=== PATIENT | male | born 1960 | race Caucasian/White ===

== ENCOUNTER 2023-09-04 09:26 | Day surgery (SDC) | payer BC, OTHER ==
[2023-09-04] VITALS (13 sets, daily range): BP systolic 104–136; BP diastolic 55–78; PULSE 72–86; RESP 16–18; TEMP 98.2; O2SAT 92–98
[~2023-09-04] VITALS: Ht 180.3 cm; Wt 65.0 kg
[2023-09-04] MEDS ORDERED: normal saline 1000ml 1,000 ML IV PRN (10:00)
[2023-09-04] MEDS ORDERED: ENOX40SY7 SUBCUT (12:57)
[2023-09-04] MEDS ORDERED: ERGO500056 PO (12:57)
[2023-09-04] MEDS ORDERED: ASPI-611 PO (12:57)
[2023-09-04] MEDS ORDERED: EMPA10TA PO (12:57)
[2023-09-04] MEDS ORDERED: CARV6.253 PO (12:57)
[2023-09-04] MEDS ORDERED: ATOR20TA66 PO (12:57)
[2023-09-04] MEDS ORDERED: DOCU100C40 PO (12:57)
[2023-09-04] MEDS ORDERED: NALO12.52 PO (13:19)
[2023-09-04] MEDS ORDERED: FOLI1TAB27 PO (13:19)
[2023-09-04] MEDS ORDERED: TROL141. TOP (13:19)
[2023-09-04] MEDS ORDERED: QUET25TA36 PO (13:19)
[2023-09-04] MEDS ORDERED: LORA-269 PO (13:19)
[2023-09-04] MEDS ORDERED: HYDR1LIQ3 IV (13:19)
[2023-09-04] MEDS ORDERED: THIA50TA10 PO (13:19)
[2023-09-04] MEDS ORDERED: OLAN5TAB3 IV (13:19)
[2023-09-04] MEDS ORDERED: ONDA-103 IV (13:19)
[2023-09-04] MEDS ORDERED: FLO0.4C PO (13:19)
[2023-09-04] MEDS ORDERED: OMEP20CA16 PO (13:19)
[2023-09-04] MEDS ORDERED: POLY17PO59 PO (13:19)
[2023-09-04] MEDS ORDERED: SPIR25TA5 PO (13:19)
[2023-09-04] MEDS ORDERED: HYDR-3973 PO ×2 (13:19)
[2023-09-04] MEDS ORDERED: PENT400T17 PO (13:19)
[2023-09-04] MEDS ORDERED: MAG355OR18 PO (13:19)
[2023-09-04] MEDS ORDERED: LIDO700A47 TOP (13:19)
[2023-09-04] MEDS ORDERED: MULT-661 PO (13:19)
[2023-09-04] MEDS ORDERED: [UNRECOGNIZED DRUG - CODE] IVF (13:19)
[2023-09-04] MEDS ORDERED: SACU1TAB PO (13:19)
[2023-09-04] MEDS ORDERED: METH114C4 TOP (13:19)
[2023-09-04 14:21] LABS: BASOPHILS # (AUTO) 0.1 X10'3 (0-0.2); BASOPHILS % (AUTO) 0.6 % (0-1); EOSINOPHILS # (AUTO) 0.2 X10'3 (0-0.9); EOSINOPHILS % (AUTO) 1.7 % (0-6); HEMATOCRIT 27.1 % (42.0-52.0); HEMOGLOBIN 9.1 g/dl (14.0-17.9); LYMPHOCYTES % (AUTO) 7.1 % (21-51); MEAN CORPUSCULAR HEMOGLOBIN 28.7 PG (27.0-31.0); MEAN CORPUSCULAR HGB CONC 33.4 g/dL (33.0-36.5); MEAN CORPUSCULAR VOLUME 85.7 FL (78-98); MEAN PLATELET VOLUME 8.1 FL (7.4-10.4); MONOCYTES # (AUTO) 0.8 X10'3 (0-0.9); MONOCYTES % (AUTO) 6.2 % (2-12); NEUTROPHILS # (AUTO) 11.6 X10'3 (1.8-7.7); NEUTROPHILS % (AUTO) 84.4 % (42-75); PLATELET COUNT 544 X10'3 (140-440); RED BLOOD COUNT 3.16 X10'6 (4.70-6.10); RED CELL DISTRIBUTION WIDTH 16.1 % (11.5-14.5); WHITE BLOOD COUNT 13.7 X10'3 (4.5-11.0)
[2023-09-04 14:28] LABS: INR 1.1 INR; PROTHROMBIN TIME 11.3 SECONDS (9.0-12.0)
[2023-09-04] MEDS ORDERED: HYDROmorphone inj. 0.5 MG/0.5 ML DISP.SYRIN IV STA (15:51)
[2023-09-04] MEDS ORDERED: LIDOcaine 1% 30ml preserv. free vial ONE (16:03)
[2023-09-04] MEDS ORDERED: midazolam 1 mg/ML 2ml injection ONE ×2 (16:05→16:47)
[2023-09-04] MEDS ORDERED: fentaNYL/PF 50MCG/1 ML 2ML syringe ONE ×2 (16:05→16:46)
--- NOTE | 2023-09-04 18:40 | NUR ---
Awaiting transport to [facility]. Report given and care transferred to Oneyda RN. Chance given to ask questions.
== END 2023-09-04 20:20 ==
LOC: SSTAY O 09:26
PROVIDERS: ATTEND Radiology Vascular & Interventional Radiology
DX: K65.1 Peritoneal abscess (principal); E11.9 Type 2 diabetes mellitus without complications; Z79.899 Other long term (current) drug therapy; Z79.84 Long term (current) use of oral hypoglycemic drugs; Z79.01 Long term (current) use of anticoagulants
CPT/HCPCS: 36415; 49406; 82948; 85025; 85610; 87070; 87075; 99152; 99153; C1769; J2250; J3010; J3490; J7030; 49180; 76942; 77012; A4615

== ENCOUNTER 2023-09-04 09:30 | Outpatient (CLI) | payer BC, OTHER ==
[2023-09-04] MEDS ORDERED: ATOR20TA66 PO (12:57)
[2023-09-04] MEDS ORDERED: CARV6.253 PO (12:57)
[2023-09-04] MEDS ORDERED: ERGO500056 PO (12:57)
[2023-09-04] MEDS ORDERED: ASPI-611 PO (12:57)
[2023-09-04] MEDS ORDERED: DOCU100C40 PO (12:57)
[2023-09-04] MEDS ORDERED: EMPA10TA PO (12:57)
[2023-09-04] MEDS ORDERED: ENOX40SY7 SUBCUT (12:57)
[2023-09-04] MEDS ORDERED: FLO0.4C PO (13:19)
[2023-09-04] MEDS ORDERED: NALO12.52 PO (13:19)
[2023-09-04] MEDS ORDERED: LIDO700A47 TOP (13:19)
[2023-09-04] MEDS ORDERED: OMEP20CA16 PO (13:19)
[2023-09-04] MEDS ORDERED: MULT-661 PO (13:19)
[2023-09-04] MEDS ORDERED: PENT400T17 PO (13:19)
[2023-09-04] MEDS ORDERED: [UNRECOGNIZED DRUG - CODE] IVF (13:19)
[2023-09-04] MEDS ORDERED: THIA50TA10 PO (13:19)
[2023-09-04] MEDS ORDERED: OLAN5TAB3 IV (13:19)
[2023-09-04] MEDS ORDERED: HYDR1LIQ3 IV (13:19)
[2023-09-04] MEDS ORDERED: POLY17PO59 PO (13:19)
[2023-09-04] MEDS ORDERED: ONDA-103 IV (13:19)
[2023-09-04] MEDS ORDERED: SACU1TAB PO (13:19)
[2023-09-04] MEDS ORDERED: FOLI1TAB27 PO (13:19)
[2023-09-04] MEDS ORDERED: SPIR25TA5 PO (13:19)
[2023-09-04] MEDS ORDERED: HYDR-3973 PO ×2 (13:19)
[2023-09-04] MEDS ORDERED: TROL141. TOP (13:19)
[2023-09-04] MEDS ORDERED: QUET25TA36 PO (13:19)
[2023-09-04] MEDS ORDERED: MAG355OR18 PO (13:19)
[2023-09-04] MEDS ORDERED: METH114C4 TOP (13:19)
[2023-09-04] MEDS ORDERED: LORA-269 PO (13:19)
== END 2023-09-04 23:59 | disposition home or self-care (01) ==
LOC: VAS 09:30
PROVIDERS: ATTEND Internal Medicine
DX: I65.23 Occlusion and stenosis of bilateral carotid arteries (principal); M79.671 Pain in right foot; M79.672 Pain in left foot
CPT/HCPCS: 93925

== ENCOUNTER 2023-09-16 22:36 | Inpatient (IN) | payer BC, OTHER ==
[~2023-09-16] VITALS: Ht 180.3 cm; Wt 57.9 kg
[~2023-09-16 22:36] MED LIST: ASPI-611 PO; ATOR20TA66 PO; CARV6.253 PO; DOCU100C40 PO; EMPA10TA PO; ENOX40SY7 SUBCUT; ERGO500056 PO; FLO0.4C PO; FOLI1TAB27 PO; HYDR-3973 PO; HYDR1LIQ3 IV; LIDO700A47 TOP; LORA-269 PO; MAG355OR18 PO; METH114C4 TOP; MULT-661 PO; NALO12.52 PO; OLAN5TAB3 IV; OMEP20CA16 PO; ONDA-103 IV; PENT400T17 PO; POLY17PO59 PO; QUET25TA36 PO; SACU1TAB PO; SPIR25TA5 PO; THIA50TA10 PO; TROL141. TOP; [UNRECOGNIZED DRUG - CODE] IVF
[2023-09-16] MEDS ORDERED: HYDROcodone/acetaminophen 10/325mg tab PO ONE (23:55)
[2023-09-16 23:58] LABS: MEAN PLATELET VOLUME 7.7 FL (7.4-10.4); RED CELL DISTRIBUTION WIDTH 18.6 % (11.5-14.5)
[2023-09-16 23:59] LABS: BASOPHILS % (AUTO) 0.1 % (0-1); EOSINOPHILS # (AUTO) 0.1 X10'3 (0-0.9); EOSINOPHILS % (AUTO) 1.2 % (0-6); HEMATOCRIT 27.2 % (42.0-52.0); HEMOGLOBIN 9.3 g/dl (14.0-17.9); LYMPHOCYTES # (AUTO) 1.4 X10'3 (1.1-4.8); LYMPHOCYTES % (AUTO) 11.8 % (21-51); MEAN CORPUSCULAR HEMOGLOBIN 29.8 PG (27.0-31.0); MEAN CORPUSCULAR VOLUME 87.6 FL (78-98); MONOCYTES # (AUTO) 0.9 X10'3 (0-0.9); MONOCYTES % (AUTO) 7.3 % (2-12); NEUTROPHILS # (AUTO) 9.4 X10'3 (1.8-7.7); NEUTROPHILS % (AUTO) 79.6 % (42-75); PLATELET COUNT 947 X10'3 (140-440); WHITE BLOOD COUNT 11.8 X10'3 (4.5-11.0)
[2023-09-17] MEDS ORDERED: simethicone 125mg capsule PO ONE
[2023-09-17 00:09] LABS: APTT 34 SECONDS (22-32); PROTHROMBIN TIME 10.9 SECONDS (9.0-12.0)
[2023-09-17 00:11] LABS: ALANINE AMINOTRANSFERASE 22 U/L (12-78); ALBUMIN 2.4 G/DL (3.4-5.0); ALBUMIN/GLOBULIN RATIO 0.7 (1.1-1.5); ALKALINE PHOSPHATASE 123 IU/L (46-116); ANION GAP 9 (8-16); ASPARTATE AMINO TRANSFERASE 21 U/L (10-37); BILIRUBIN,TOTAL 0.2 MG/DL (0.1-1.0); BLOOD UREA NITROGEN 22 MG/DL (7-18); BUN/CREATININE RATIO 25.3 (10.0-20.0); CALCIUM 8.2 MG/DL (8.5-10.1); CHLORIDE 104 MMOL/L (99-107); CREATININE 0.87 MG/DL (0.60-1.10); GLUCOSE 118 MG/DL (70-104); SODIUM 138 MMOL/L (135-145); TOTAL CARBON DIOXIDE 24.9 MMOL/L (24-32); eCRCL 74 ML/MIN; eGFR 89 ML/MIN
[2023-09-17 00:42] LABS: TOTAL CELLS COUNTED 100
[2023-09-17 00:43] LABS: ANISOCYTOSIS 2+; BURR CELLS 1+; PLATELET ESTIMATE INCREASED
[2023-09-17 00:44] LABS: HYPOCHROMASIA 1+
[2023-09-17] MEDS ORDERED: normal saline 1000ml 1,000 ML IV ONE (00:45)
[2023-09-17] MEDS ORDERED: heparin 10,000 units/1 ML INJ IV ONE ×2 (00:45)
[2023-09-17 00:47] LABS: ACANTHOCYTES FEW
[2023-09-17 00:48] LABS: LARGE PLATELETS FEW; SCHISTOCYTES FEW
[2023-09-17] MEDS ORDERED: morphine 4 MG/ML inj SYRINge IV ONE (00:50)
[2023-09-17] MEDS ORDERED: ondansetron/PF 4mg/2ml inj IV ONE (00:50)
[2023-09-17 00:56] LABS: TARGET CELLS FEW
[2023-09-17] MEDS: heparin 25,000 UNIT/250ml bag 250 ML IV PRN (02:02)
[2023-09-17] MEDS ORDERED: HYDROmorphone inj. 0.5 MG/0.5 ML DISP.SYRIN IV ONE (02:10)
[2023-09-17] MEDS ORDERED: HYDROmorphone inj. 0.5 MG/0.5 ML DISP.SYRIN IV PRN (02:15)
[2023-09-17] MEDS ORDERED: acetaminophen 325mg tablet PO PRN ×2 (02:50)
[2023-09-17] MEDS ORDERED: morphine 2 MG/ML inj. syringe IV PRN ×2 (02:50)
[2023-09-17] MEDS ORDERED: acetaminophen 650mg rectal suppository RC PRN (02:50)
[2023-09-17] MEDS ORDERED: diphenhydrAMINE 50 mg/ml inj IV PRN (02:50)
[2023-09-17] MEDS ORDERED: ondansetron/PF 4mg/2ml inj IV PRN (02:50)
[2023-09-17] MEDS ORDERED: diphenhydrAMINE 25mg capsule PO PRN (02:50)
[2023-09-17] MEDS ORDERED: HYDROcodone/acetaminophen 5mg/325mg tablet PO PRN (02:50)
[2023-09-17] MEDS ORDERED: magnesium hydroxide 30ml (MOM) UD suspension PO PRN (02:50)
[2023-09-17] MEDS ORDERED: ondansetron 4mg rapidly disintigrating tab PO PRN (02:50)
[2023-09-17] MEDS ORDERED: mag hydrox/Alum hydrox/simeth 30ml oral suspension PO PRN (02:50)
[2023-09-17] MEDS ORDERED: bisacodyl 10mg suppository rectal RC PRN (02:50)
[2023-09-17] MEDS ORDERED: DEXTROSE 15 GM of carb/4 tabs (each vial/BOTTLE has 4 tablets) PO PRN ×2 (02:55)
[2023-09-17] MEDS ORDERED: insulin Lispro (HumaLOG) vial - multi-dose SQ SCH (02:55)
[2023-09-17] MEDS ORDERED: glucagon, human recombinant 1mg kit SUBCUT PRN (02:55)
[2023-09-17] MEDS ORDERED: MESSAGE TO PHARMACY PO ONE (02:55)
[2023-09-17] MEDS ORDERED: dextrose 50%-water 50ml dispensing syringe IV PRN ×2 (02:55)
[2023-09-17 03:02] LABS: BILIRUBIN,URINE NEGATIVE (Neg); CLARITY,URINE CLEAR (Clear); COLOR,URINE YELLOW (Yellow); GLUCOSE, URINE >=1000 mg/dl (Neg); KETONES,URINE NEGATIVE (Neg); LEUKOCYTE ESTERASE ,URINE NEGATIVE (Neg); NITRITES, URINE NEGATIVE (Neg); OCCULT BLOOD,URINE NEGATIVE (Neg); PH,URINE 6.5 (4.8-8.0); PROTEIN,URINE NEGATIVE (Neg); UROBILINOGEN,URINE 0.2 E.U/dL (0.2-1.0)
[2023-09-17 03:09] LABS: UA COLLECTION TYPE CLN CATCH MIDSTREAM
[2023-09-17 03:14] LABS: BACTERIA,URINE NONE SEEN /HPF (Neg); RBC,URINE 0-2 /HPF (0-2); SQUAMOUS EPITHELIAL CELL,UR FEW /LPF (FEW); WBC,URINE NONE SEEN /HPF (0-4)
[2023-09-17 03:22] LABS: HEMOGLOBIN A1C 5.4 % (4.5-6.2)
[2023-09-17 03:52] LABS: URINE AMPHETAMINE SCREEN NEGATIVE (Neg); URINE BARBITUATE SCREEN NEGATIVE (Neg); URINE BENZODIAZEPINES SCREEN NEGATIVE (Neg); URINE CANNABINOID SCREEN NEGATIVE (Neg); URINE COCAINE SCREEN NEGATIVE (Neg); URINE METHADONE SCREEN NEGATIVE (Neg); URINE OPIATE SCREEN POSITIVE (Neg); URINE PHENCYCLIDINE SCREEN NEGATIVE (Neg)
[2023-09-17] MEDS ORDERED: HYDR1SYR4 IVP (04:10)
[2023-09-17] MEDS ORDERED: OLAN10VI4 IM (04:10)
[2023-09-17] MEDS ORDERED: MAGN64TA10 PO (04:10)
[2023-09-17] MEDS ORDERED: ONDA4DIS4 IVP (04:10)
[2023-09-17] MEDS ORDERED: SODI473S26 MC (04:10)
[2023-09-17] MEDS ORDERED: HYDR0.5S8 IM (04:10)
[2023-09-17] MEDS ORDERED: LIDO-12 TP (04:10)
[2023-09-17] MEDS ORDERED: DOCU283E RC (04:11)
[2023-09-17] MEDS ORDERED: ASPI325T88 PO (04:21)
[2023-09-17] MEDS: normal saline 1000ml 1,000 ML IV SCH ×3 (04:23→22:50)
[2023-09-17] MEDS: CefTRIAXone/D5W-Rocephin 1gm 50 ML IV SCH (04:24)
[2023-09-17] MEDS ORDERED: vancomycin/NS 1 GM ADD-VANTAGE 250 ML IV ONE (04:27)
[2023-09-17 04:29] LABS: CREATINE KINASE 31 U/L (39-308); MAGNESIUM 1.6 MG/DL (1.5-2.4); PHOSPHORUS 3.9 MG/DL (2.3-4.5); PRO BRAIN NATRIURETIC PEPTIDE 3806 PG/ML (0-125)
[2023-09-17] MEDS: HYDROmorphone inj. 0.5 MG/0.5 ML DISP.SYRIN IV PRN ×4 (07:14→20:26)
--- NOTE | 2023-09-17 07:15 | NUR ---
PT LAYING ON RIGHT SIDE IN BED CALLING OUT IN PAIN. PT REPORTS 8/10 PAIN TO LEFT LEG. THERE IS ADEQUATE PADDING IN PLACE AND PT WILL NOT ALLOW ME TO REPOSITION HIM. HE STATES THE PAIN IS TOO SEVERE. WOUND PHOTOS WERE TAKEN. PT REPORTS PAIN WITH JUST PLACING THE STICKER OVER HIS WOUNDS. PT SHORT WITH ANSWERS WHEN QUESTIONED ABOUT HIS MEDICAL HISTORY. UPDATED PT ON PLAN OF CARE AND HE STATES "NO ONE IS CUTTING ME OPEN" - I ADVISED HIM THAT WE WOULD BE ABLE TO PARTICIPATE IN HIS PLAN OF CARE AND HAVE A DISCUSSION WITH HIS HOPSITALIST AND SURGEON TO ANSWER ANY QUESTIONS HE MAY HAVE. HE IS NPO AT THIS TIME FOR POSSIBLE SURGICAL INTERVENTION AND HE IS UPSET ABOUT THIS. PT WAS MEDICATED FOR PAIN AND WILL ATTEMPT A MORE THOUROUGH ASSESSMENT ONCE PTS PAIN IS UNDER CONTROL. HE DENIES ADDITIONAL NEEDS AT THIS TIME. VSS AND UPDATED IN CHART.
[2023-09-17] MEDS ORDERED: polyethylene glycol 3350 17gm powd pack PO PRN (07:55)
[2023-09-17] MEDS ORDERED: LORazepam 1 MG tablet PO PRN (07:55)
[2023-09-17] MEDS ORDERED: QUEtiapine 25mg tablet PO PRN (07:55)
[2023-09-17] MEDS: EMPAGLIFLOZIN 10 MG TABLET PO SCH (08:00)
[2023-09-17] MEDS ORDERED: NALOXEGOL OXALATE 12.5 MG PO PRN (08:15)
[2023-09-17] MEDS ORDERED: [UNRECOGNIZED DRUG - OTHER] TP PRN (08:15)
[2023-09-17] MEDS ORDERED: thiamine 100mg tablet PO ONE (09:22)
[2023-09-17] MEDS: atorvastatin 20mg tablet PO SCH (09:48)
[2023-09-17] MEDS: sacubitril/valsartan 24mg-26mg tablet PO SCH ×2 (09:48→22:54)
[2023-09-17] MEDS: docusate sod 100mg capsule PO SCH ×2 (09:48→21:37)
[2023-09-17] MEDS: folic acid 1mg tablet PO SCH (09:48)
[2023-09-17] MEDS: tamsulosin 0.4mg capsule PO SCH (09:51)
[2023-09-17] MEDS: spironolactone 25 MG tablet PO SCH (09:52)
[2023-09-17] MEDS: HYDROcodone/acetaminophen 10/325mg tab PO PRN ×3 (09:56→22:55)
--- NOTE | 2023-09-17 10:02 | NUR ---
pt remains upset about being NPO for possibility for surgery. I again tried to explain that he will be speaking to a physician before any procedures are done including surgery. Wound care care outside room and team is neatby for eval. Morning meds passed. pain continues to be high at 8/10, [place] given
--- NOTE | 2023-09-17 11:16 | NUR ---
pt continues to be short with staff and is upset about the fact no one has consulted with him today and that he is NPO - he is on heparin drip and giving lab a hard time about the need for frequent lab studies. I educated the patient on the improtance of lab draws while on heparin. He then allowed lab to draw his blood. I contacted the resident who is following his care and she states that Dr. Lopez is aware of the patient and should see him sometime today.
--- NOTE | 2023-09-17 11:42 | NUR ---
PT HAS APOLOGIZED FOR HIS EARLIER BEHAVIOR. HE BECOMES EMOTIONAL AND STATES HE JUST DOESN'T KNOW WHAT IS GOING ON. I AGAIN UPDATED HIM WITH PLAN OF CARE TO THE BEST OF MY ABILITY. DR. ROGERS AT BEDSIDE CURRENTLY.
--- NOTE | 2023-09-17 12:56 | NUR ---
PT THREATENS TO LEAVE AMA IF WE DO NEED FEED HIM OR THE SURGEON DOESN'T COME BY BEFORE 1600HRS.
[2023-09-17] MEDS ORDERED: simethicone 80mg chew tab PO ONE ×3 (14:55→17:00)
[2023-09-17] MEDS: heparin 10,000 units/1 ML INJ IV PRN ×2 (16:38→21:19)
--- NOTE | 2023-09-17 16:51 | NUR ---
heparin bolus and rate adjusted for ptt of 34 - see MAR for current rates - patient continues to endorse pain and was medicated with Dilaudid 0.5mg as ordered
[2023-09-17] MEDS: vancomycin/NS 1 GM ADD-VANTAGE 250 ML IV SCH (17:10)
[2023-09-17 20:20] VITALS: BP 156/78; PULSE 97; RESP 20; TEMP 98.2; O2SAT 96
[2023-09-17 20:30] VITALS: RESP 18; O2SAT 95
[2023-09-17] MEDS ORDERED: temazepam 15mg capsule PO PRN (21:00)
[2023-09-17] MEDS ORDERED: insulin glargine (Lantus) pen - multi-dose SQ SCH (21:00)
[2023-09-17 21:30] VITALS: BP 136/55; PULSE 80; RESP 16; O2SAT 96
[2023-09-17] MEDS: carVEDilol 12.5mg tablet PO SCH (21:36)
[2023-09-17] MEDS: pantoprazole 40mg Tablet.DR PO SCH (21:37)
[2023-09-17] MEDS: simethicone 80mg chew tab PO SCH (21:37)
[2023-09-17 22:00] VITALS: BP 147/78; PULSE 82; RESP 15; TEMP 97.5; O2SAT 93
[2023-09-17 22:54] VITALS: BP 155/75; PULSE 90; RESP 18; O2SAT 94
[2023-09-18] VITALS (13 sets, daily range): BP systolic 110–169; BP diastolic 64–81; PULSE 79–108; RESP 14–20; TEMP 96.8–97.6; O2SAT 93–97
[2023-09-18] MEDS: HYDROmorphone inj. 0.5 MG/0.5 ML DISP.SYRIN IV PRN ×4 (00:39→17:24)
[2023-09-18] MEDS: heparin 25,000 UNIT/250ml bag 250 ML IV PRN (00:57)
[2023-09-18] MEDS: HYDROcodone/acetaminophen 10/325mg tab PO PRN ×4 (02:59→21:50)
[2023-09-18] MEDS: normal saline 1000ml 1,000 ML IV SCH ×2 (03:04→15:25)
[2023-09-18] MEDS: CefTRIAXone/D5W-Rocephin 1gm 50 ML IV SCH (03:05)
[2023-09-18 03:38] LABS: EOSINOPHILS # (AUTO) 0.2 X10'3 (0-0.9); MEAN CORPUSCULAR HEMOGLOBIN 28.6 PG (27.0-31.0)
[2023-09-18 03:40] LABS: BASOPHILS % (AUTO) 0.3 % (0-1); EOSINOPHILS % (AUTO) 1.1 % (0-6); HEMATOCRIT 27.1 % (42.0-52.0); HEMOGLOBIN 8.8 g/dl (14.0-17.9); LYMPHOCYTES # (AUTO) 1.5 X10'3 (1.1-4.8); LYMPHOCYTES % (AUTO) 10.4 % (21-51); MEAN CORPUSCULAR HGB CONC 32.4 g/dL (33.0-36.5); MEAN CORPUSCULAR VOLUME 88.2 FL (78-98); MEAN PLATELET VOLUME 7.8 FL (7.4-10.4); NEUTROPHILS # (AUTO) 11.9 X10'3 (1.8-7.7); NEUTROPHILS % (AUTO) 81.2 % (42-75); PLATELET COUNT 907 X10'3 (140-440); RED BLOOD COUNT 3.07 X10'6 (4.70-6.10); RED CELL DISTRIBUTION WIDTH 19.1 % (11.5-14.5); WHITE BLOOD COUNT 14.7 X10'3 (4.5-11.0)
[2023-09-18 03:46] LABS: ALANINE AMINOTRANSFERASE 22 U/L (12-78); ALBUMIN 2.1 G/DL (3.4-5.0); ALBUMIN/GLOBULIN RATIO 0.6 (1.1-1.5); ALKALINE PHOSPHATASE 103 IU/L (46-116); ANION GAP 5 (8-16); ASPARTATE AMINO TRANSFERASE 16 U/L (10-37); BILIRUBIN,TOTAL 0.2 MG/DL (0.1-1.0); BLOOD UREA NITROGEN 16 MG/DL (7-18); BUN/CREATININE RATIO 19.8 (10.0-20.0); CALCIUM 7.8 MG/DL (8.5-10.1); CHLORIDE 106 MMOL/L (99-107); CHOL/HDL RATIO 3.6 (0.00-4.99); CHOLESTEROL 65 MG/DL (0-200); CREATININE 0.81 MG/DL (0.60-1.10); GLUCOSE 112 MG/DL (70-104); HDL CHOLESTEROL 18 MG/DL (35-60); LDL CHOLESTEROL 32 MG/DL (50-100); POTASSIUM 4.1 MMOL/L (3.5-5.1); SODIUM 138 MMOL/L (135-145); TOTAL CARBON DIOXIDE 27.4 MMOL/L (24-32); TOTAL PROTEIN 5.5 G/DL (6.4-8.2); TRIGLYCERIDES 110 MG/DL (20-135); eCRCL 79 ML/MIN; eGFR > 90 ML/MIN
--- NOTE | 2023-09-18 04:24 | NUR ---
PT IS PAINFUL AND DID NOT WANT TO ANSWER DART QUESTIONS TONIGHT.
[2023-09-18] MEDS: vancomycin/NS 1 GM ADD-VANTAGE 250 ML IV SCH (04:44)
--- NOTE | 2023-09-18 06:37 | NUR ---
Problems reprioritized. Patient report given, questions answered & plan of care reviewed with LEXIE IZQUIERDO. PT HAS BEEN NPO SINCE MIDNIGHT.
[2023-09-18] MEDS: tamsulosin 0.4mg capsule PO SCH (07:22)
[2023-09-18] MEDS: EMPAGLIFLOZIN 10 MG TABLET PO SCH (07:22)
[2023-09-18] MEDS: pantoprazole 40mg Tablet.DR PO SCH ×2 (07:23→21:59)
[2023-09-18] MEDS: carVEDilol 12.5mg tablet PO SCH ×2 (07:24→21:49)
[2023-09-18] MEDS: atorvastatin 20mg tablet PO SCH (07:24)
[2023-09-18] MEDS: multivitamins, therapeutics tablet PO SCH (07:24)
[2023-09-18] MEDS: folic acid 1mg tablet PO SCH (07:24)
[2023-09-18] MEDS: thiamine 100mg tablet PO SCH (07:24)
[2023-09-18] MEDS: simethicone 80mg chew tab PO SCH ×4 (07:25→21:49)
[2023-09-18] MEDS: sacubitril/valsartan 24mg-26mg tablet PO SCH ×2 (07:25→21:49)
[2023-09-18] MEDS: LORazepam 0.5 MG tablet PO PRN ×2 (07:49→21:59)
[2023-09-18] MEDS: spironolactone 25 MG tablet PO SCH (08:00)
[2023-09-18] MEDS: docusate sod 100mg capsule PO SCH ×2 (08:00→21:49)
--- NOTE | 2023-09-18 10:33 | NUR ---
Called angio. RN states procedure scheduled for this afternoon. Pt. made aware.
--- NOTE | 2023-09-18 12:54 | NUR ---
Pt's jonathon prepared for procedure.
[2023-09-18] MEDS ORDERED: midazolam 1 mg/ML 2ml injection ONE ×4 (13:03→14:55)
[2023-09-18] MEDS ORDERED: fentaNYL/PF 50MCG/1 ML 2ML syringe ONE ×4 (13:04→14:56)
[2023-09-18] MEDS ORDERED: heparin 1,000 UNITS/NS 500ml 500 ML ONE ×2 (13:04)
[2023-09-18] MEDS ORDERED: iohexol 300mg/ml 100ml inj. ONE (13:04)
--- NOTE | 2023-09-18 13:30 | NUR ---
Pt. off tele floor for angio procedure.
[2023-09-18] MEDS ORDERED: diphenhydrAMINE 50 mg/ml inj ONE (13:38)
[2023-09-18] MEDS ORDERED: hydrALAZINE 20mg/ml inj. IV ONE (14:39)
--- NOTE | 2023-09-18 15:05 | NUR ---
Initial: Pt admit DX BLE PVD, severe bilateral femoral artery stenosis, severe ischemic pain L lower foot/leg, hypovolemia, anemia, and chronic pain/CHF per EMR. Pt hx DM though A1C 5.4% w/ no DM meds reported on admit; unsure accuracy. Noted pt BMI 18.4 pending scaled wt and RN Malnutrition Screen this admit though pt does appear WD/WN per MD note. Only scaled wt hx 65kg bed scale 09/05/23 w/ current reported wt 60kg in EMR. RD d/w RN who reports pt does appear thin though gone for procedure at this time. Pt currently NPO pending likely iliac stenting today per EMR. Per WOC, sacrum unstageable PI and L calf/heel arterial ulcers. Pt pending malnutrition status this admit since unable to interview/visual assessment at this time. Colostomy output pending documentation. Will monitor for diet advancement, malnutrition criteria, and further nutrition intervention needs. Rec: 1. advance diet as medically indicated to low-residue 2. Consider Jono BID vs Ensure Enlive for wound healing; ONS type and frequency pending malnutrition status 3. Continue routine thiamine, folic acid per MD; consider changing MVI to MVM w/ Fe for wound healing once PO per physician discretion 4. bowel care per rx; consider stopping cathartic given colostomy status. Monitor ostomy output for diet intervention needs 5. scaled wt this admit; subsequent weekly wt Addendum: 09/18/23 at [address] Amended: Links added.
[2023-09-18] MEDS ORDERED: VANCOMYCIN LEVEL IV ONE (16:30)
--- NOTE | 2023-09-18 17:31 | NUR ---
Pt. previously refusing pulse checks r/t pain. Does not like legs touched. Dopplers attempted. Good left dorsalis pedal doppler. No left dorsalis heard, Left tibial found. LLE redness, some purple and white coloring on L great toe. 6 second cap refill. Increased pain. Pain medication given per order. Charge made aware. Surgeon Stephaniasett rounding on floor and able to examine pt. CTA LE ordered. P
--- NOTE | 2023-09-18 17:38 | NUR ---
[place] 3023C Pt. has uncontrolled 10/10 pain in L foot. no dorsalis pedis found. L tibial pulse found. 6 second cap refill on great toe and purple/white coloring. Can I please have more pain medication? Zoe [id number]
[2023-09-18] MEDS ORDERED: HYDROmorphone inj. 0.5 MG/0.5 ML DISP.SYRIN IV ONE (18:10)
[2023-09-18] MEDS ORDERED: naloxone 0.4 mg/ml inj IV PRN (18:10)
--- NOTE | 2023-09-18 18:24 | NUR ---
Pt. c/o severe back pain. Abd. and flanks assessed by RN. Suprapubic distention noticed. Bladder scanned showed > 1000ml. Pt. refused straight cath. Attempted to void. Voided 400 ml via urinal. POst void residual bladder scan shows > 769ml. Pt. still refusing straight cath stating that he has 40 minutes before he can stand and would like to wait and attempt to void when he is standing rather than lying down.
--- NOTE | 2023-09-18 19:08 | NUR ---
Gave report to Tammy OWEN
[2023-09-18] MEDS ORDERED: iohexol 350 MG/ML 50ML vial IV ONE (19:41)
[2023-09-18] MEDS ORDERED: iohexol 350MG/ML 100ml bottle IV ONE (19:41)
[2023-09-19] VITALS (7 sets, daily range): BP systolic 135–157; BP diastolic 64–76; PULSE 77–89; RESP 14–18; TEMP 97.4–98.6; O2SAT 96–97
[2023-09-19] MEDS: HYDROmorphone 1 mg/ml syringe IV PRN ×5 (00:26→19:37)
[2023-09-19] MEDS ORDERED: simethicone 80mg chew tab PO SCH (01:46)
[2023-09-19] MEDS: normal saline 1000ml 1,000 ML IV SCH ×2 (02:05→18:05)
[2023-09-19] MEDS: simethicone 80mg chew tab PO SCH ×4 (03:32→20:49)
[2023-09-19] MEDS: HYDROcodone/acetaminophen 10/325mg tab PO PRN ×5 (03:33→21:11)
[2023-09-19] MEDS: CefTRIAXone/D5W-Rocephin 1gm 50 ML IV SCH (03:52)
--- NOTE | 2023-09-19 05:55 | NUR ---
PT S/P ILIAC STENTS RT GROIN SITE FREE OF HEMATOMA SOME SHADOWING ON DRESSING CIRCLED; LT FOOT PEDAL PULSE WAS ABSENT W/ DOPPLER AND GREAT TOE PURPLE WAS TOLD MARIANNA AWARE BY [facility] NURSE AND THAT HE ORDERED A CTA; CTA DONE 09/18/23 AND REPORTED ON AT 2340; LT FOOT GREAT TOE REMAINED THE SAME IN APPEARANCE THROUGHOUT THE NIGHT PROLONGED CAP REFILL OF APPROX 3 SECONDS; LT FOOT TIBIAL PULSE WAS AUSCULTATED BY DOPPLER; PT PAIN BETTER CONTROLLED W/ INCREASE IN PAIN MED DOSAGE; PT WOULD NOT ALLOW ME TO USE THE THERAHONEY ON HIS SACRAL WOUND SAID " THAT IS WHY IT IS NOT HEALING"; VSS RESTING COMFORTABLY
--- NOTE | 2023-09-19 06:40 | NUR ---
Problems reprioritized. Patient report given, questions answered & plan of care reviewed with LEXIE HU.
--- NOTE | 2023-09-19 06:46 | NUR ---
Patient in room PCU 3023. I have received report from Barb OWEN and had the opportunity to ask questions and assume patient care.Pt talking to Lab amor. Pt renée refusing Lab draw. Addendum: 09/19/23 at 0647 by Renee King RN Amended: Links added.
[2023-09-19 07:21] LABS: BASOPHILS % (AUTO) 0.3 % (0-1); EOSINOPHILS # (AUTO) 0.2 X10'3 (0-0.9); EOSINOPHILS % (AUTO) 1.3 % (0-6); HEMATOCRIT 29.3 % (42.0-52.0); HEMOGLOBIN 9.7 g/dl (14.0-17.9); LYMPHOCYTES # (AUTO) 1.2 X10'3 (1.1-4.8); LYMPHOCYTES % (AUTO) 7.9 % (21-51); MEAN CORPUSCULAR HEMOGLOBIN 29.2 PG (27.0-31.0); MEAN CORPUSCULAR HGB CONC 33.1 g/dL (33.0-36.5); MEAN CORPUSCULAR VOLUME 88.3 FL (78-98); MEAN PLATELET VOLUME 7.8 FL (7.4-10.4); MONOCYTES # (AUTO) 1.1 X10'3 (0-0.9); MONOCYTES % (AUTO) 7.3 % (2-12); NEUTROPHILS # (AUTO) 12.8 X10'3 (1.8-7.7); NEUTROPHILS % (AUTO) 83.2 % (42-75); PLATELET COUNT 758 X10'3 (140-440); RED BLOOD COUNT 3.32 X10'6 (4.70-6.10); RED CELL DISTRIBUTION WIDTH 19.4 % (11.5-14.5); WHITE BLOOD COUNT 15.4 X10'3 (4.5-11.0)
[2023-09-19 07:57] LABS: BURR CELLS FEW; PLATELET ESTIMATE INCREASED
[2023-09-19 07:58] LABS: ANISOCYTOSIS 2+; POIKILOCYTOSIS FEW; SPHEROCYTES FEW
[2023-09-19] MEDS: EMPAGLIFLOZIN 10 MG TABLET PO SCH (08:13)
[2023-09-19] MEDS: atorvastatin 20mg tablet PO SCH (08:14)
[2023-09-19] MEDS: pantoprazole 40mg Tablet.DR PO SCH ×2 (08:14→20:47)
[2023-09-19] MEDS: sacubitril/valsartan 24mg-26mg tablet PO SCH ×2 (08:14→21:09)
[2023-09-19] MEDS: carVEDilol 12.5mg tablet PO SCH ×2 (08:15→20:47)
[2023-09-19] MEDS: folic acid 1mg tablet PO SCH (08:15)
[2023-09-19] MEDS: multivitamins, therapeutics tablet PO SCH (08:15)
[2023-09-19] MEDS: thiamine 100mg tablet PO SCH (08:15)
[2023-09-19] MEDS: tamsulosin 0.4mg capsule PO SCH (08:16)
[2023-09-19] MEDS: docusate sod 100mg capsule PO SCH ×2 (08:16→20:47)
[2023-09-19] MEDS: spironolactone 25 MG tablet PO SCH (08:17)
[2023-09-19] MEDS: aspirin 81mg tab.chew PO SCH (08:19)
[2023-09-19] MEDS: JUVEN Smoothie Arginine/Glut./Ca2+Bmb (Juven 19.3pkt) 240ml cup PO SCH (09:30)
--- NOTE | 2023-09-19 10:39 | NUR ---
F/u 09/19: Pt seen by JORDY at bedside this AM. Pt unable to give accurate wt loss timeline though does report UBW 150-155 pounds prior to initial hospitalization. Pt admit from reports has gained weight going from initial 115 to now ~130-135 pounds at w/ good appetite. Despite this, pt still presents w/ severe temporal/bilateral arms and moderate to severe clavicular wasting evident. While pt is in process of nutrition repletion he is still severely malnourished- MD notified. Per pt, dislikes Ensures but was drinking Jono at is agreeable to banana vs strawberry-banana Jono smoothie BIDBD- MD notified. Pt reports PO 100% first regular meal last night and this AM; requests hard-boiled eggs WB dislikes scrambled, banana WB, and double condiments TIDWM- dietary notified of preferences. RD paged MD regarding changing current MVI to MVM w/ Fe given malnutrition and wound healing needs. Will monitor for further nutrition intervention needs this admit. Rec: 1. continue regular diet per MD 2. banana vs strawberry-banana Jono smoothie BIDBD for wound healing; pending physician verification in EMR 3. routine thiamine, folic acid per MD; change MVI to MVM w/ Fe for wound healing/malnutrition needs 4. bowel care per rx; consider stopping cathartic given colostomy status. Pending ostomy output documentation this admit 5. scaled wt this admit; subsequent weekly wt Addendum: 09/19/23 at [address] Amended: Links added.
[2023-09-19 11:14] LABS: ALANINE AMINOTRANSFERASE 18 U/L (12-78); ALBUMIN 2.1 G/DL (3.4-5.0); ALBUMIN/GLOBULIN RATIO 0.6 (1.1-1.5); ALKALINE PHOSPHATASE 88 IU/L (46-116); ANION GAP 5 (8-16); ASPARTATE AMINO TRANSFERASE 15 U/L (10-37); BILIRUBIN,TOTAL 0.4 MG/DL (0.1-1.0); BLOOD UREA NITROGEN 10 MG/DL (7-18); BUN/CREATININE RATIO 11.5 (10.0-20.0); CALCIUM 8.3 MG/DL (8.5-10.1); CHLORIDE 106 MMOL/L (99-107); CREATININE 0.87 MG/DL (0.60-1.10); GLUCOSE 119 MG/DL (70-104); SODIUM 136 MMOL/L (135-145); TOTAL CARBON DIOXIDE 25.2 MMOL/L (24-32); TOTAL PROTEIN 5.5 G/DL (6.4-8.2); eCRCL 74 ML/MIN; eGFR 89 ML/MIN
--- NOTE | 2023-09-19 15:34 | NUR ---
OSTOMY FACTS: Almost everyone has know of, or met, businessmen, entertainers, athletes, and people from all walks of life who have an ostomy. Ostomates (a person that has an ostomy) can ski, ride horses, bowl, and get healthy exercise in countless ways. Your usual activities of daily living can be resumed as soon as you are able. Gradually you will be able to wear the clothes worn before surgery. With modern pouches, nothing is noticeable under your clothing. It may be difficult at first to believe that an intimate relationship can be possible when one's body has been disfigured by surgery. This is not true. Love, fortunately, is not easily destroyed when it is based on genuine appreciation of a person as a thinking, feeling, reacting human being. AN OSTOMY IS NOT AN IMPAIRMENT!! DEFINITIONS: 1.OSTOMY: An opening that is created by a surgical procedure. The opening is called a "stoma". 2.STOMA: A surgical opening in the abdomen (belly) where intestine is brought through the abdominal wall and connected at the skin level. A stoma is shiny, wet and at first is dark purple but eventually turns pink, similar to the inside lining of your mouth. 3.COLON: A portion of the large bowel. 4.COLOSTOMY: A fecal diversion with an opening, (stoma) created anywhere along the colon. Making a connection between the colon and the abdominal wall. 5.ILLEOSTOMY: A fecal diversion with an opening, (stoma) created in the small intestine. Making a connection between the small intestine and the abdominal wall. 6.UROSTOMY: A urinary diversion with the ureters connected to a segment of the small bowel and one end is brought out and connected to the abdominal wall, creating a stoma. SHAPES and SIZES: "The stoma is usually round or oval. "It is anywhere from a dime to half dollar in size. "A stoma reaches its permanent size 6-8 weeks after surgery. PRODUCTS: 1.POUCH or APPLIANCE: An external device to contain stool or urine output and protect the skin around the stoma. It can be a one piece pouch or two pieces (a pouch and a wafer). 2.BARRIER: Substance that is used to protect the skin around the stoma from drainage and adhesive. 3.SKIN PREP or SEALANT: Product applied to the skin to reduce injury from moisture, drainage, or repeated pouch removal. Available in spray or wipes. 4.CLOSURE or CLAMP: A device used to close the bottom of a drainable pouch. 5.BRIDGE or SLOANE: A piece of plastic placed under a loop of bowel on the skins surface, to secure the bowel in place while the skin heals. POUCH CHANGE PROCEEDURE: 1.Assemble all the supplies "1 or 2 piece appliance "Ostomy paste (if needed) "Ostomy powder (if needed) "Skin prep wipes ( not recommended with coloplast products) "Moist wash cloth or cotton balls 2.Remove plastic center and paper backing from pouch. If pouch or wafer is not precut, use the sizing guide, or plastic backing from pouch to make a pattern. Do this by placing the paper over the stoma and trace it, or draw a pattern. Cut the wafer to fit and set it aside. 3.Remove old pouch by lifting up on tape while pressing skin down away from the tape. If there is a clip on your pouch, remove it and save it. 4.Clean skin or stoma with moistened wash cloth or cotton balls. Place a clean cotton ball over stoma hole to catch any drainage. Let skin dry. 5.For grooves or uneven areas in the skin- apply ostomy paste and sprinkle with ostomy powder, then gently shape the past so the area around the stoma is smooth and as flat as possible. Wipe off or blow away excess. Blot powder with skin prep wipe (DO NOT wipe powder). Let dry until no longer sticky. 6.For irritated or reddened skin- sprinkle ostomy powder on red or irritated area. Wipe off or blow away excess. Blot powder with skin prep wipe (DO NOT wipe powder). Let dry until no longer sticky. 7.Apply skin prep wipe to skin to which the pouch and tape will adhere. Let dry until no longer sticky. 8.If you have a one piece appliance- apply pouch so it is centered around the stoma. No skin should be exposed to stool. All skin should be covered by paste or pouch. 9.If you have a two piece appliance- Apply the wafer as described above, then snap or stick pouch onto wafer. Check to make sure wafer and pouch are securely connected. 10.Place clip on bottom of pouch. 11.Empty pouch when 1/3 full. OSTOMY SKIN CARE: "Good health care and nutrition are essential for healthy skin. "Usually a correct pouch size will prevent skin breakdown. "Use warm water and soap for skin cleansing. "Do not use creams or oil based products on skin around the stoma. This will prevent the appliance from sticking. "Use skin prep around the stoma. IT CAN TAKE 24 HOURS TO SEVERAL DAYS FOR SKIN TO HEAL. IF IT IS NOT RESOLVING, OR GETTING WORSE, CALL YOUR PRIMARY CARE DOCTOR. Addendum: 09/19/23 at 1535 by Liliam Edwards LVN Amended: Links added.
--- NOTE | 2023-09-19 18:15 | NUR ---
Problems reprioritized. Patient report given, questions answered & plan of care reviewed with Penny puga and Amado PUGA.. Addendum: 09/19/23 at 1816 by Renee King RN Amended: Links added.
[2023-09-19] MEDS: heparin, porcine 5000 units/ml vial SQ SCH (20:48)
[2023-09-19] MEDS: clopidogrel 75mg tablet PO SCH (21:01)
[2023-09-20] VITALS (8 sets, daily range): BP systolic 139–191; BP diastolic 63–92; PULSE 73–87; RESP 11–18; TEMP 97–98.8; O2SAT 94–98
[2023-09-20] MEDS: HYDROmorphone 1 mg/ml syringe IV PRN ×5 (01:00→23:16)
[2023-09-20] MEDS: simethicone 80mg chew tab PO SCH ×4 (03:29→21:00)
--- NOTE | 2023-09-20 06:15 | NUR ---
Patient in room PCU 3023. I have received report from Amado CORRALES and had the opportunity to ask questions and assume patient care.Pt sleeping, Call light in reach. Addendum: 09/20/23 at 0644 by Renee King RN Amended: Links added.
--- NOTE | 2023-09-20 06:16 | NUR ---
Problems reprioritized. Patient report given to Renee OWEN questions answered & plan of care reviewed with .
[2023-09-20] MEDS: clopidogrel 75mg tablet PO SCH (07:26)
[2023-09-20] MEDS: carVEDilol 12.5mg tablet PO SCH ×2 (07:27→19:58)
[2023-09-20] MEDS: folic acid 1mg tablet PO SCH (07:27)
[2023-09-20] MEDS: sacubitril/valsartan 24mg-26mg tablet PO SCH ×2 (07:27→19:58)
[2023-09-20] MEDS: pantoprazole 40mg Tablet.DR PO SCH ×2 (07:27→19:57)
[2023-09-20] MEDS: HYDROcodone/acetaminophen 10/325mg tab PO PRN ×3 (07:27→21:02)
[2023-09-20 07:28] LABS: BASOPHILS # (AUTO) 0.1 X10'3 (0-0.2); BASOPHILS % (AUTO) 0.4 % (0-1); EOSINOPHILS # (AUTO) 0.1 X10'3 (0-0.9); EOSINOPHILS % (AUTO) 0.9 % (0-6); HEMATOCRIT 26.4 % (42.0-52.0); HEMOGLOBIN 8.7 g/dl (14.0-17.9); LYMPHOCYTES # (AUTO) 1.2 X10'3 (1.1-4.8); LYMPHOCYTES % (AUTO) 8.1 % (21-51); MEAN CORPUSCULAR VOLUME 87.9 FL (78-98); MEAN PLATELET VOLUME 7.8 FL (7.4-10.4); MONOCYTES # (AUTO) 0.9 X10'3 (0-0.9); MONOCYTES % (AUTO) 6.1 % (2-12); NEUTROPHILS # (AUTO) 12.6 X10'3 (1.8-7.7); NEUTROPHILS % (AUTO) 84.5 % (42-75); PLATELET COUNT 641 X10'3 (140-440); RED CELL DISTRIBUTION WIDTH 19.5 % (11.5-14.5); WHITE BLOOD COUNT 14.9 X10'3 (4.5-11.0)
[2023-09-20] MEDS: docusate sod 100mg capsule PO SCH ×2 (07:28→19:57)
[2023-09-20] MEDS: atorvastatin 20mg tablet PO SCH (07:28)
[2023-09-20] MEDS: EMPAGLIFLOZIN 10 MG TABLET PO SCH (07:28)
[2023-09-20] MEDS: multivitamins, therapeutics tablet PO SCH (07:28)
[2023-09-20] MEDS: thiamine 100mg tablet PO SCH (07:28)
[2023-09-20] MEDS: tamsulosin 0.4mg capsule PO SCH (07:28)
[2023-09-20] MEDS: spironolactone 25 MG tablet PO SCH (07:29)
[2023-09-20] MEDS: JUVEN Smoothie Arginine/Glut./Ca2+Bmb (Juven 19.3pkt) 240ml cup PO SCH ×2 (07:30→17:30)
[2023-09-20 07:49] LABS: ALANINE AMINOTRANSFERASE 18 U/L (12-78); ALBUMIN 2.2 G/DL (3.4-5.0); ALBUMIN/GLOBULIN RATIO 0.6 (1.1-1.5); ALKALINE PHOSPHATASE 91 IU/L (46-116); ANION GAP 6 (8-16); ASPARTATE AMINO TRANSFERASE 16 U/L (10-37); BILIRUBIN,TOTAL 0.4 MG/DL (0.1-1.0); BLOOD UREA NITROGEN 11 MG/DL (7-18); BUN/CREATININE RATIO 12.9 (10.0-20.0); CALCIUM 8.4 MG/DL (8.5-10.1); CHLORIDE 103 MMOL/L (99-107); CREATININE 0.85 MG/DL (0.60-1.10); GLUCOSE 116 MG/DL (70-104); POTASSIUM 4.1 MMOL/L (3.5-5.1); SODIUM 136 MMOL/L (135-145); TOTAL CARBON DIOXIDE 27.2 MMOL/L (24-32); TOTAL PROTEIN 5.8 G/DL (6.4-8.2); eCRCL 75 ML/MIN; eGFR > 90 ML/MIN
[2023-09-20] MEDS: heparin, porcine 5000 units/ml vial SQ SCH ×2 (08:31→20:00)
[2023-09-20] MEDS: normal saline 1000ml 1,000 ML IV SCH (08:34)
[2023-09-20] MEDS: aspirin 81mg tab.chew PO SCH (08:34)
--- NOTE | 2023-09-20 18:07 | NUR ---
Problems reprioritized. Patient report given, questions answered & plan of care reviewed with Penny CORRALES and Amado CORRALES.Pt eating dinner. Call light in reach. Addendum: 09/20/23 at 1808 by Renee King RN Amended: Links added.
[2023-09-21] VITALS (8 sets, daily range): BP systolic 120–178; BP diastolic 66–94; PULSE 74–87; RESP 13–20; TEMP 97.7–98.6; O2SAT 9–96
[2023-09-21] MEDS: normal saline 1000ml 1,000 ML IV SCH ×3 (00:30→10:05)
[2023-09-21] MEDS: simethicone 80mg chew tab PO SCH ×4 (03:52→21:13)
[2023-09-21] MEDS: HYDROcodone/acetaminophen 10/325mg tab PO PRN ×3 (05:07→16:58)
--- NOTE | 2023-09-21 06:28 | NUR ---
Patient in room PCU 3023. I have received report from Penny CORRALES and Amado CORRALES and had the opportunity to ask questions and assume patient care. Pt watching TV. Addendum: 09/21/23 at 0629 by Renee King RN Amended: Links added.
[2023-09-21 07:39] LABS: BASOPHILS # (AUTO) 0.1 X10'3 (0-0.2); EOSINOPHILS # (AUTO) 0.2 X10'3 (0-0.9); LYMPHOCYTES # (AUTO) 1.1 X10'3 (1.1-4.8); LYMPHOCYTES % (AUTO) 7.6 % (21-51); RED CELL DISTRIBUTION WIDTH 19.8 % (11.5-14.5)
[2023-09-21 07:43] LABS: BASOPHILS % (AUTO) 0.5 % (0-1); EOSINOPHILS % (AUTO) 1.2 % (0-6); HEMATOCRIT 27.7 % (42.0-52.0); HEMOGLOBIN 9.1 g/dl (14.0-17.9); MEAN CORPUSCULAR HGB CONC 32.9 g/dL (33.0-36.5); MONOCYTES # (AUTO) 0.9 X10'3 (0-0.9); MONOCYTES % (AUTO) 6.4 % (2-12); NEUTROPHILS # (AUTO) 12.5 X10'3 (1.8-7.7); NEUTROPHILS % (AUTO) 84.3 % (42-75); PLATELET COUNT 621 X10'3 (140-440); RED BLOOD COUNT 3.14 X10'6 (4.70-6.10); WHITE BLOOD COUNT 14.8 X10'3 (4.5-11.0)
[2023-09-21] MEDS: pantoprazole 40mg Tablet.DR PO SCH ×2 (07:48→21:12)
[2023-09-21] MEDS: folic acid 1mg tablet PO SCH (07:48)
[2023-09-21] MEDS: tamsulosin 0.4mg capsule PO SCH (07:48)
[2023-09-21] MEDS: thiamine 100mg tablet PO SCH (07:48)
[2023-09-21] MEDS: aspirin 81mg tab.chew PO SCH (07:49)
[2023-09-21] MEDS: sacubitril/valsartan 24mg-26mg tablet PO SCH ×2 (07:49→21:12)
[2023-09-21] MEDS: multivitamins, therapeutics tablet PO SCH (07:49)
[2023-09-21] MEDS: EMPAGLIFLOZIN 10 MG TABLET PO SCH (07:49)
[2023-09-21] MEDS: atorvastatin 20mg tablet PO SCH (07:49)
[2023-09-21] MEDS: carVEDilol 12.5mg tablet PO SCH ×2 (07:50→21:12)
[2023-09-21] MEDS: docusate sod 100mg capsule PO SCH ×2 (07:50→21:12)
[2023-09-21] MEDS: clopidogrel 75mg tablet PO SCH (07:50)
[2023-09-21] MEDS: spironolactone 25 MG tablet PO SCH (07:51)
[2023-09-21] MEDS: JUVEN Smoothie Arginine/Glut./Ca2+Bmb (Juven 19.3pkt) 240ml cup PO SCH ×2 (07:54→09:39)
--- NOTE | 2023-09-21 08:05 | NUR ---
This RN has reviewed and agrees w/the INTERPRETER AND TRANSLATOR's physical assessment of this patient.
[2023-09-21 08:27] LABS: ANISOCYTOSIS 2+; HYPOCHROMASIA 1+; PLATELET ESTIMATE INCREASED
[2023-09-21 08:28] LABS: BURR CELLS FEW; SCHISTOCYTES FEW
[2023-09-21 08:29] LABS: ALANINE AMINOTRANSFERASE 15 U/L (12-78); ALBUMIN 2.2 G/DL (3.4-5.0); ALBUMIN/GLOBULIN RATIO 0.6 (1.1-1.5); ALKALINE PHOSPHATASE 90 IU/L (46-116); ANION GAP 10 (8-16); ASPARTATE AMINO TRANSFERASE 16 U/L (10-37); BILIRUBIN,TOTAL 0.4 MG/DL (0.1-1.0); BLOOD UREA NITROGEN 12 MG/DL (7-18); BUN/CREATININE RATIO 14.3 (10.0-20.0); CALCIUM 8.5 MG/DL (8.5-10.1); CHLORIDE 103 MMOL/L (99-107); CREATININE 0.84 MG/DL (0.60-1.10); GLUCOSE 103 MG/DL (70-104); SODIUM 139 MMOL/L (135-145); TOTAL CARBON DIOXIDE 25.7 MMOL/L (24-32); eCRCL 74 ML/MIN; eGFR > 90 ML/MIN
[2023-09-21] MEDS: heparin, porcine 5000 units/ml vial SQ SCH ×2 (08:41→21:13)
[2023-09-21] MEDS: HYDROmorphone 1 mg/ml syringe IV PRN ×3 (08:43→21:22)
--- NOTE | 2023-09-21 18:22 | NUR ---
Patient in room PCU 3018. I have received report from Megan CORRALES and had the opportunity to ask questions and assume patient care. Pt eating dinner. Call light in reach. Addendum: 09/21/23 at 1823 by Renee King RN Amended: Links added.
[2023-09-22] MEDS: HYDROcodone/acetaminophen 10/325mg tab PO PRN ×3 (02:14→14:58)
[2023-09-22] MEDS: simethicone 80mg chew tab PO SCH ×4 (03:00→20:36)
[2023-09-22] MEDS: HYDROmorphone 1 mg/ml syringe IV PRN ×3 (04:56→22:20)
--- NOTE | 2023-09-22 06:45 | NUR ---
Patient in room PCU 3018B. I have received report from SAVANNA MELGAR and had the opportunity to ask questions and assume patient care.
[2023-09-22 07:00] VITALS: BP 140/79; PULSE 68; RESP 15; TEMP 98.8; O2SAT 95
[2023-09-22 07:00] LABS: BASOPHILS % (AUTO) 0.2 % (0-1); EOSINOPHILS # (AUTO) 0.2 X10'3 (0-0.9); EOSINOPHILS % (AUTO) 1.6 % (0-6); HEMATOCRIT 28.1 % (42.0-52.0); LYMPHOCYTES # (AUTO) 1.5 X10'3 (1.1-4.8); LYMPHOCYTES % (AUTO) 11.1 % (21-51); MEAN CORPUSCULAR HEMOGLOBIN 28.4 PG (27.0-31.0); MEAN CORPUSCULAR HGB CONC 32.1 g/dL (33.0-36.5); MEAN CORPUSCULAR VOLUME 88.7 FL (78-98); MEAN PLATELET VOLUME 7.9 FL (7.4-10.4); MONOCYTES # (AUTO) 0.9 X10'3 (0-0.9); MONOCYTES % (AUTO) 6.6 % (2-12); NEUTROPHILS # (AUTO) 10.9 X10'3 (1.8-7.7); NEUTROPHILS % (AUTO) 80.5 % (42-75); PLATELET COUNT 578 X10'3 (140-440); RED BLOOD COUNT 3.17 X10'6 (4.70-6.10); RED CELL DISTRIBUTION WIDTH 19.7 % (11.5-14.5); WHITE BLOOD COUNT 13.5 X10'3 (4.5-11.0)
[2023-09-22 07:30] LABS: ALANINE AMINOTRANSFERASE 14 U/L (12-78); ALBUMIN 2.2 G/DL (3.4-5.0); ALBUMIN/GLOBULIN RATIO 0.6 (1.1-1.5); ALKALINE PHOSPHATASE 99 IU/L (46-116); ANION GAP 7 (8-16); ASPARTATE AMINO TRANSFERASE 15 U/L (10-37); BILIRUBIN,TOTAL 0.3 MG/DL (0.1-1.0); BLOOD UREA NITROGEN 13 MG/DL (7-18); BUN/CREATININE RATIO 14.6 (10.0-20.0); CALCIUM 8.7 MG/DL (8.5-10.1); CHLORIDE 105 MMOL/L (99-107); CREATININE 0.89 MG/DL (0.60-1.10); GLUCOSE 104 MG/DL (70-104); POTASSIUM 4.1 MMOL/L (3.5-5.1); SODIUM 137 MMOL/L (135-145); TOTAL CARBON DIOXIDE 25.2 MMOL/L (24-32); TOTAL PROTEIN 6.1 G/DL (6.4-8.2); eCRCL 70 ML/MIN; eGFR 86 ML/MIN
[2023-09-22] MEDS: JUVEN Smoothie Arginine/Glut./Ca2+Bmb (Juven 19.3pkt) 240ml cup PO SCH ×2 (07:30→17:30)
--- NOTE | 2023-09-22 07:30 | NUR ---
This RN has reviewed and agrees w/the physical assessment of this patient.
[2023-09-22 08:00] VITALS: RESP 16
[2023-09-22] MEDS: docusate sod 100mg capsule PO SCH ×2 (09:09→20:36)
[2023-09-22] MEDS: folic acid 1mg tablet PO SCH (09:09)
[2023-09-22] MEDS: aspirin 81mg tab.chew PO SCH (09:09)
[2023-09-22] MEDS: carVEDilol 12.5mg tablet PO SCH ×2 (09:09→20:36)
[2023-09-22] MEDS: atorvastatin 20mg tablet PO SCH (09:10)
[2023-09-22] MEDS: EMPAGLIFLOZIN 10 MG TABLET PO SCH (09:10)
[2023-09-22] MEDS: multivitamins, therapeutics tablet PO SCH (09:10)
[2023-09-22] MEDS: clopidogrel 75mg tablet PO SCH (09:10)
[2023-09-22] MEDS: heparin, porcine 5000 units/ml vial SQ SCH ×2 (09:10→20:38)
[2023-09-22] MEDS: pantoprazole 40mg Tablet.DR PO SCH ×2 (09:16→20:36)
[2023-09-22] MEDS: thiamine 100mg tablet PO SCH (09:16)
[2023-09-22] MEDS: sacubitril/valsartan 24mg-26mg tablet PO SCH ×2 (09:17→21:00)
[2023-09-22] MEDS: tamsulosin 0.4mg capsule PO SCH (09:17)
[2023-09-22] MEDS: spironolactone 25 MG tablet PO SCH (09:18)
--- NOTE | 2023-09-22 09:24 | NUR ---
F/u 09/22: Pt continues on a regular diet with overall great appetite with average PO intake of 100% x 6 meals this follow up. Pt continues receiving Jono smoothies BID for wound healing with average intake of 50% x 5 Jono smoothies. PO intake +Jono Shake BID met ~100% of estimated kcals and ~97% of estimated protein needs. LBM on 09/20 via colostomy with 450mL output per EMR. Will continue to monitor and make recommendation as able. Rec: 1. continue regular diet per MD 2. banana vs strawberry-banana Jono smoothie BIDBD for wound healing 3. routine thiamine, folic acid per MD; change MVI to MVM w/ Fe for wound healing/malnutrition needs 4. bowel care per rx; consider stopping cathartic given colostomy status. Pending ostomy output documentation this admit 5. weekly scaled wts Addendum: 09/22/23 at [address] Amended: Links added.
[2023-09-22 10:00] VITALS: BP 122/62; PULSE 71; RESP 15; TEMP 98.6; O2SAT 95
--- NOTE | 2023-09-22 12:00 | NUR ---
Student documentation: I have reviewed and agree with all assessment performed and documented by CLARISA BYNUM.
[2023-09-22] MEDS: normal saline 1000ml 1,000 ML IV SCH (14:52)
[2023-09-22] MEDS: HYDROmorphone inj. 0.5 MG/0.5 ML DISP.SYRIN IV PRN (17:31)
[2023-09-22 18:00] VITALS: BP 153/73; PULSE 67; RESP 16; TEMP 97.7; O2SAT 98
[2023-09-22 18:50] VITALS: RESP 16; O2SAT 98
--- NOTE | 2023-09-22 19:31 | NUR ---
Problems reprioritized. Patient report given, questions answered & plan of care reviewed with LEXIE VINSON.
[2023-09-22 22:00] VITALS: BP 164/77; PULSE 75; RESP 18; TEMP 98.7; O2SAT 97
[2023-09-23 02:00] VITALS: BP 152/70; PULSE 65; RESP 16; TEMP 98.1; O2SAT 98
[2023-09-23] MEDS: simethicone 80mg chew tab PO SCH ×3 (03:00→09:20)
[2023-09-23] MEDS: normal saline 1000ml 1,000 ML IV SCH (03:12)
[2023-09-23] MEDS: HYDROcodone/acetaminophen 10/325mg tab PO PRN ×3 (04:19→13:58)
[2023-09-23 06:00] VITALS: PULSE 69; RESP 14; TEMP 98.9; O2SAT 97
[2023-09-23 06:01] LABS: BASOPHILS # (AUTO) 0.1 X10'3 (0-0.2); BASOPHILS % (AUTO) 0.9 % (0-1); EOSINOPHILS # (AUTO) 0.2 X10'3 (0-0.9); EOSINOPHILS % (AUTO) 1.6 % (0-6); HEMOGLOBIN 9.3 g/dl (14.0-17.9); LYMPHOCYTES # (AUTO) 1.4 X10'3 (1.1-4.8); LYMPHOCYTES % (AUTO) 10.9 % (21-51); MEAN CORPUSCULAR HEMOGLOBIN 29.5 PG (27.0-31.0); MEAN CORPUSCULAR HGB CONC 33.2 g/dL (33.0-36.5); MEAN CORPUSCULAR VOLUME 88.8 FL (78-98); MEAN PLATELET VOLUME 7.7 FL (7.4-10.4); MONOCYTES # (AUTO) 0.9 X10'3 (0-0.9); MONOCYTES % (AUTO) 7.2 % (2-12); NEUTROPHILS # (AUTO) 10.1 X10'3 (1.8-7.7); NEUTROPHILS % (AUTO) 79.4 % (42-75); PLATELET COUNT 548 X10'3 (140-440); RED BLOOD COUNT 3.15 X10'6 (4.70-6.10); RED CELL DISTRIBUTION WIDTH 19.6 % (11.5-14.5); WHITE BLOOD COUNT 12.7 X10'3 (4.5-11.0)
--- NOTE | 2023-09-23 06:36 | NUR ---
Patient in room PCU 3018. I have received report from LEXIE Hurst and had the opportunity to ask questions and assume patient care.
--- NOTE | 2023-09-23 06:43 | NUR ---
Problems reprioritized. Patient report given, questions answered & plan of care reviewed with Lashanda. Addendum: 09/23/23 at 0643 by Sin Mckinley RN Amended: Links added.
[2023-09-23 09:00] VITALS: RESP 16
[2023-09-23] MEDS: pantoprazole 40mg Tablet.DR PO SCH (09:13)
[2023-09-23] MEDS: clopidogrel 75mg tablet PO SCH (09:13)
[2023-09-23] MEDS: docusate sod 100mg capsule PO SCH (09:14)
[2023-09-23] MEDS: thiamine 100mg tablet PO SCH (09:14)
[2023-09-23] MEDS: folic acid 1mg tablet PO SCH (09:14)
[2023-09-23] MEDS: tamsulosin 0.4mg capsule PO SCH (09:14)
[2023-09-23] MEDS: EMPAGLIFLOZIN 10 MG TABLET PO SCH (09:14)
[2023-09-23] MEDS: multivitamins, therapeutics tablet PO SCH (09:14)
[2023-09-23] MEDS: carVEDilol 12.5mg tablet PO SCH (09:15)
[2023-09-23] MEDS: spironolactone 25 MG tablet PO SCH (09:16)
[2023-09-23] MEDS: aspirin 81mg tab.chew PO SCH (09:20)
[2023-09-23] MEDS: heparin, porcine 5000 units/ml vial SQ SCH (09:24)
[2023-09-23] MEDS: sacubitril/valsartan 24mg-26mg tablet PO SCH (09:28)
[2023-09-23] MEDS: atorvastatin 20mg tablet PO SCH (09:28)
[2023-09-23] MEDS: JUVEN Smoothie Arginine/Glut./Ca2+Bmb (Juven 19.3pkt) 240ml cup PO SCH (09:29)
[2023-09-23 10:00] VITALS: BP 156/78; PULSE 73; RESP 20; TEMP 98.1; O2SAT 99
[2023-09-23] MEDS ORDERED: furosemide 20MG tablet PO SCH (11:40)
[2023-09-23] MEDS: HYDROmorphone 1 mg/ml syringe IV PRN (11:44)
[2023-09-23 16:00] VITALS: BP 124/76; PULSE 69; RESP 14; TEMP 98.7; O2SAT 99
--- NOTE | 2023-09-23 17:02 | NUR ---
Patient is stable and appropriate for transfer to [facility]. Report called to Susie CORRALES. Tele removed. Patient sent with IV patent and intact. Belongings sent with patient. Patient was taken to [facility] by Danae and their staff.
--- NOTE | 2023-09-23 17:41 | NUR ---
Student documentation: I have reviewed and agree with assessment performed and documented by CLARISA BYNUM .
== END 2023-09-23 17:02 | DRG 253 ==
LOC: ER 22:37 → ED HOLD 09-17 02:53 → PCU 3S 09-17 19:35
PROVIDERS: ADMIT Family Medicine; ATTEND Family Medicine
PROC: 047J3D1 Dilation of Left External Iliac Artery with Intraluminal Device, using Drug-Coated Balloon, Percutaneous Approach (ICD-10-PCS; principal; 2023-09-18)
PROC: 047L3Z1 Dilation of Left Femoral Artery using Drug-Coated Balloon, Percutaneous Approach (ICD-10-PCS; 2023-09-18)
PROC: 047H3DZ Dilation of Right External Iliac Artery with Intraluminal Device, Percutaneous Approach (ICD-10-PCS; 2023-09-18)
PROC: 047L3ZZ Dilation of Left Femoral Artery, Percutaneous Approach (ICD-10-PCS; 2023-09-18)
PROC: B4201ZZ Computerized Tomography (CT Scan) of Abdominal Aorta using Low Osmolar Contrast (ICD-10-PCS; 2023-09-18)
PROC: B4241ZZ Computerized Tomography (CT Scan) of Superior Mesenteric Artery using Low Osmolar Contrast (ICD-10-PCS; 2023-09-18)
PROC: B4281ZZ Computerized Tomography (CT Scan) of Bilateral Renal Arteries using Low Osmolar Contrast (ICD-10-PCS; 2023-09-18)
PROC: B42C1ZZ Computerized Tomography (CT Scan) of Pelvic Arteries using Low Osmolar Contrast (ICD-10-PCS; 2023-09-18)
PROC: B42H1ZZ Computerized Tomography (CT Scan) of Bilateral Lower Extremity Arteries using Low Osmolar Contrast (ICD-10-PCS; 2023-09-18)
PROC: B42H1ZZ Computerized Tomography (CT Scan) of Bilateral Lower Extremity Arteries using Low Osmolar Contrast (ICD-10-PCS; 2023-09-18)
DX: E11.51 Type 2 diabetes mellitus with diabetic peripheral angiopathy without gangrene (principal); I50.32 Chronic diastolic (congestive) heart failure; L03.116 Cellulitis of left lower limb; I10 Essential (primary) hypertension; J44.9 Chronic obstructive pulmonary disease, unspecified; G89.4 Chronic pain syndrome; N40.0 Benign prostatic hyperplasia without lower urinary tract symptoms; D75.839 Thrombocytosis, unspecified; E88.09 Other disorders of plasma-protein metabolism, not elsewhere classified; I70.209 Unspecified atherosclerosis of native arteries of extremities, unspecified extremity; E86.1 Hypovolemia; D64.9 Anemia, unspecified; K21.9 Gastro-esophageal reflux disease without esophagitis; Z79.82 Long term (current) use of aspirin; Z79.899 Other long term (current) drug therapy; Z93.3 Colostomy status; Z87.891 Personal history of nicotine dependence
CPT/HCPCS: 36415; 37221; 37223; 37224; 71045; 75635; 76942; 80053; 80061; 80305; 81001; 82550; 82948; 83036; 83735; 83880; 84100; 84145; 84443; 84484; 85007; 85008; 85025; 85610; 85730; 86885; 86900; 86901; 87040; 87081; 93306; 93922; 97110; 97116; 97161; 97530; 99152; 99153; 99285; A4421; A4615; A4620; A4649; A6212; A6213; A6258; A6260; A6449; C1725; C1760; C1761; C1769; C1876; C1887; C1894; C2623; G0378; J0360; J0696; J1170; J1200; J1644; J2250; J2270; J2405; J3010; J3370; J3490; J7030; Q9967

== ENCOUNTER 2025-05-29 03:32 | Inpatient (IN) | payer BC, MEDICAID ==
[~2025-05-29] VITALS: Ht 180.3 cm; Wt 61.5 kg
[~2025-05-29 03:32] MED LIST changes: -ASPI-611 PO; +ASPI325T88 PO; +DOCU283E RC; -ERGO500056 PO; -FLO0.4C PO; +HYDR0.5S8 IM; -HYDR1LIQ3 IV; +HYDR1SYR4 IVP; +LIDO-6 TP; -LIDO700A47 TOP; +MAGN64TA10 PO; +OLAN10VI4 IM; -OLAN5TAB3 IV; -ONDA-103 IV; +ONDA4DIS4 IVP; +SODI473S26 MC; +TAMS-55 PO
--- NOTE | 2025-05-29 04:09 | Physician Documentation ---
History of Present Illness Chief Complaint: Vomiting Stated Complaint: XFER Time Seen by MD: 04:04 OK to notify your PCP?: Yes Source: patient, RN/MD, EMS, RN notes reviewed, EMS notes reviewed, old records Mode of Arrival: EMS, Air Transport Exam Limitations: no limitations HPI 64 year old male who is a former [employer] who worked with Alok Thomas presents as a transfer from [facility] due to a small bowel obstruction. HPI from [facility]: In short patient presented to the ED by EMS for chest pain, abdominal pain, nausea vomiting x3 days. Reported history of CHF, CKD, HTN. Stated he is not taking any medications. Denies blood pressure medication. Supposed to be on diuretics. Not taking. Preston states that he gave up on the medical system and has been lost to follow up. Feeling like the system was not helping him. CT c/a/p: Impression: Dependent ground glass pulmonary opacities most prominent within the left lung which may be hypoventilatory owever atypical pneumonitis or developing asymmetric edema should be clinically excluded. XR CHEST AP PORTABLE: Impressions: Cardiomegaly and findings suggestive of pulmonary edema. Medication Reconciliation Allergies: Coded Allergies: No Known Allergies (Unverified , 09/16/23) Scheduled Carvedilol (Carvedilol), 3.125 MG PO BID Empagliflozin (Jardiance), 10 MG PO DAILY Potassium Chloride* (K-Dur*), 1 TAB PO DAILY Sacubitril/Valsartan (Entresto 24 mg-26 mg Tablet), 1 TABLET PO BID Spironolactone (Aldactone), 1 TAB PO DAILY Discontinued Medications Aspirin (Aspirin EC), 1 TAB PO DAILY, (Reported) Discontinued Reason: patient no longer taking Atorvastatin Calcium (Atorvastatin Calcium), 1 TAB PO DAILY, (Reported) Discontinued Reason: patient no longer taking Carvedilol (Carvedilol), 2 TABLET PO BID, (Reported) Discontinued Reason: patient no longer taking Docusate Sodium (Docusate Sodium), 1 CAP PO BID, (Reported) Discontinued Reason: patient no longer taking Docusate Sodium (Enemeez), 5 ML RC DAILY PRN for constipation, (Reported) Discontinued Reason: patient no longer taking Empagliflozin (Jardiance), 1 TAB PO DAILY, (Reported) Discontinued Reason: patient no longer taking Enoxaparin Sodium (Lovenox), 0.4 ML SUBCUT DAILY, (Reported) Discontinued Reason: patient no longer taking Folic Acid* (Folic Acid*), 1 TAB PO DAILY, (Reported) Discontinued Reason: patient no longer taking Home Med List (No Home Medications), (Reported) Hydrocodone Bit/Acetaminophen (Hydrocodone-Apap 10-325 Tablet), 1 TABLET PO HS, (Reported) Discontinued Reason: patient no longer taking Hydrocodone Bit/Acetaminophen (Hydrocodone-Apap 10-325 Tablet), 2 TABLET PO Q4H PRN for breakthrough pain, (Reported) Discontinued Reason: patient no longer taking Hydromorphone HCl (Hydromorphone HCl), 0.5 MG IM BID PRN for WOUND CARE, (Reported) Discontinued Reason: patient no longer taking Hydromorphone Hcl/Pf (Hydromorphone 1 Mg/Ml Syringe), 0.5 MG IVP Q4H PRN for breakthrough pain, (Reported) Discontinued Reason: patient no longer taking Lidocaine/Menthol (Lidocaine-Menthol 4%-4% Patch), 1 PATCH TP BID PRN for pain, (Reported) Discontinued Reason: patient no longer taking Lorazepam (Ativan), 0.5 TAB PO Q4H PRN for for anxiety/agitation, (Reported) Discontinued Reason: patient no longer taking Mag Hydrox/Al Hydrox/Simeth* (Maalox Advanced Suspension*), 30 ML PO PRN PRN for indigestion/dyspepsia, (Reported) Discontinued Reason: patient no longer taking Magnesium Chloride (Mag64), 1 TAB PO DAILY, (Reported) Discontinued Reason: patient no longer taking Methyl Salicylate/Menth/Camph (Muscle Rub Ultra Str Cream), 1 DOSPAK TOP DAILY, (Reported) Discontinued Reason: patient no longer taking Multivitamin W/Iron, Minerals (Multivitamins with Iron), 1 TAB PO DAILY, (Reported) Discontinued Reason: patient no longer taking Naloxegol Oxalate (Movantik), 2 TAB PO DAILY PRN for constipation, (Reported) Discontinued Reason: patient no longer taking Olanzapine IM* (ZyprexaIm Only), 5 MG IM Q4H PRN for for anxiety/agitation, (Reported) Discontinued Reason: patient no longer taking Omeprazole (Omeprazole), 1 CAP PO BID, (Reported) Discontinued Reason: patient no longer taking Ondansetron HCl/Pf (Ondansetron HCl 4 mg/2 ml Syr), 4 MG IVP Q4H PRN for nausea/vomiting, (Reported) Discontinued Reason: patient no longer taking Pentoxifylline (Pentoxifylline), 1 TAB PO BID, (Reported) Discontinued Reason: patient no longer taking Polyethylene Glycol 3350 (Polyethylene Glycol 3350), 1 PKT PO DAILY PRN for constipation, (Reported) Discontinued Reason: patient no longer taking Quetiapine Fumarate (Quetiapine Fumarate), 1 TAB PO BID PRN for for anxiety/agitation, (Reported) Discontinued Reason: patient no longer taking Sacubitril/Valsartan (Entresto 24 mg-26 mg Tablet), 1 TAB PO BID, (Reported) Discontinued Reason: patient no longer taking Sodium Chloride 0.9 % (Flush) (Aquastat), 10 ML IVF BID, (Reported) Discontinued Reason: patient no longer taking Sodium Hypochlorite (Dakin's), 473 ML MC BID, (Reported) Discontinued Reason: patient no longer taking Spironolactone (Spironolactone), 1 TAB PO DAILY, (Reported) Discontinued Reason: patient no longer taking Tamsulosin Hcl* (Flomax*), 1 CAP PO DAILY, (Reported) Discontinued Reason: patient no longer taking Thiamine HCl (Vitamin B-1), 2 TAB PO DAILY, (Reported) Discontinued Reason: patient no longer taking Trolamine Salicylate/Aloe Vera (Aspercreme 10% Cream), 1 APPLIC TOP Q12H, (Reported) Discontinued Reason: patient no longer taking Review of Systems All Other Systems at this time: Reviewed and Negative ROS As stated above in the HPI, otherwise all systems are reviewed and negative. Physical Exam Vital Signs: RN Vital Signs have been reviewed: Yes, Heart Rate: 75, Respiratory Rate: 12, BP: 164/83, Pulse Oximetry: 97 Oxygen Flow Rate: 6.0 Pulse Oximetry Reflects: adequate oxygenation Physical Exam General: The patient is well developed, well nourished, nontoxic appearing and is in no acute distress. Skin: [place], warm and dry with no rashes. HEENT: Head was normocephalic and atraumatic. Eyes - pupils equal, round, reactive to light and accommodation. Extraocular movements were intact. Conjunctivae were nonicteric. Ears - bilateral tympanic membranes were normal. The mouth and oropharynx were clear with moist mucous membranes. There were no pharyngeal exudates or erythema. Neck: Supple and nontender. There was no jugular venous distention, lymphadenopathy, thyromegaly or masses. Chest: Clear to auscultation bilaterally without wheezes, rales or rhonchi. No accessory muscle use. No dullness to percussion. Heart: 2/6 systolic murmur. Rate regular and rhythmic. S1, S2. Palpation of the chest wall was normal. No rubs or thrills. Abdomen: Colostomy, NG, and duran in place. Decreased bowel sounds. Soft, nontender and nondistended. No guarding or rebound. No hepatosplenomegaly or palpable masses. Extremities: No cyanosis, clubbing or edema. The patient moves all extremities. Pulses were equal and symmetric. Neurologic: Cranial nerves II-XII were intact. Sensation was intact to light touch throughout. Motor strength was 5/5 in all four extremities. Deep tendon reflexes were intact in both upper and lower extremities. Psychologic: The patient was oriented to person, place and time. The patient demonstrated appropriate judgement and insight Progress Progress Note 0441: The ballistics expert was informed in the patients case and kindly agreed to the patients admission. Results/Orders Reviewed/noted all lab results: Yes Results/Orders Orders - KWABENA CARLTON MD Cbc/Diff (05/29/25 04:05) Lipase (05/29/25 04:05) MG (05/29/25 04:05) Urinalysis, Cult If Indicated (05/29/25 04:05) Pt Inr (05/29/25 04:05) PTT (05/29/25 04:05) Protonix 40mg/100ml Drip (05/29/25 04:05) Ct Abdomen Pelvis (05/29/25 04:05) BMP (05/29/25 04:05) Hs Troponin I W Calculations (05/29/25 04:05) Diatr Meglu/Diatrizoate 30ml (Gastrograf (05/29/25 04:05) Echocardiogram (05/29/25 04:07) Vital Signs 05/29/25 05/29/25 03:33 03:45 Pulse 75 Resp 12 B/P (MAP) 164/83 Pulse Ox 97 O2 Flow Rate 6.0 Re-Evaluation Re-Evaluation : Re-Evaluation: Improved Progress Patient was seen and examined. Patient was given reassurance. Patient was transferred from outside facility from the [facility]. The patient's laboratory work was redrawn. Patient continued just show thrombocytopenia with platelets of 1039. WBCs elevated at 15.5 no anemia hemoglobin 14 hematocrit 44. Chemistry however showed an elevated troponin at 118 more likely thought to be secondary to patient's kidney failure. Creatinine shows a level of 2.42 with a BUN of 49 potassium slightly low at 3.3 magnesium 1.9. [place] [address]. Echocardiogram was then ordered. Protonix was given to the patient and ultimately was admitted to the ICU for further management and care. Continuous level vial marker interpretation shows normal sinus rhythm heart rate 70s, no ectopy, normal, my interpretation Pulse oximetry monitor interpretation shows hypoxemia with oxygenation at 6 L 97% abnormal, my interpretation. EKG/XRAY/CT/US/VASC/MRI Abdominal X-Ray : Additional Comment Exam: DI ABDOMEN,SINGLE VIEW(KUB) Indication: pain Comparison: None Technique: Single radiographic views of the abdomen. Findings: The heart is enlarged. Chronic appearing bilateral interstitial pulmonary markings noted within the lung bases. Enteric catheter terminates within the left upper quadrant, presumably within the gastric lumen. Nonobstructive bowel gas pattern noted. There is no definite evidence for pneumoperitoneum. No abnormal calcifications noted. Impression: 1. Nonobstructive bowel gas pattern noted. 2. Enteric catheter. 3. Cardiomegaly. 4. Chronic appearing bibasilar interstitial pulmonary markings. Electronically Signed by:EUSEBIO WAHL MD Date & Time: 05/29/25 0515 Medical Decision Making Additional info obtained from: old records Differential Dx:Considerations: Include: AAA, Angina/[place], Aortic dissection, Appendicitis, Bowel obstruction, Cholangitis, Cholelithasis, Constipation, Diverticular disease, Esophageal rupture, Esophagitis, Gastritis/PUD, Gastroenteritis, GI hemorrhage, Hernia, Hepatitis, Inflammatory BD, Ischemic bowel, Pancreatitis, Porphyria, Testicular torsion, Trauma, intraabdominal, Urinary obstruction, Urinary tract infection, Urolithiasis, Other Heart Score: Heart Score Response (Comments) Value History Slightly Suspicious 0 EKG Repolarization Disturb 1 Age 45-64 1 Risk Factors 1 or 2 risk factors 1 Troponin 1-2 x's Normal limit 1 Total 4 Departure Time of Disposition: 04:48 Disposition: 09 ADMITTED INPATIENT Admitted to Inpatient Unit: yes, to hospitalist Admission Level of Care: Ortho with Tele Impression: Primary Impression: Small bowel obstruction Additional Impressions: Acute on chronic heart failure Qualified Codes: I50.9 - Heart failure, unspecified Thrombocytosis Hypokalemia Condition: Critical Referrals: NO PRIMARY CARE PROVIDER (PCP) Prescriptions Spironolactone (Aldactone) 25 Mg Tablet 1 TAB PO DAILY for 30 Days, #30 TAB 0 Refills Prov: KRISTEN ÁLVAREZ MD 06/03/25 Potassium Chloride* (K-Dur*) 20 Meq Tab.prt.sr 1 TAB PO DAILY, #20 TAB Prov: LANE PROCTOR DO 05/31/25 Empagliflozin (Jardiance) 10 Mg Tablet 10 MG PO DAILY, #30 TAB 1 Refill Prov: LANE PROCTOR DO 05/31/25 Sacubitril/Valsartan (Entresto 24 mg-26 mg Tablet) 24 Mg-26 Mg Tablet 1 TABLET PO BID, #60 TAB 1 Refill Prov: LANE PROCTOR DO 05/31/25 Carvedilol (Carvedilol) 3.125 Mg Tablet 3.125 MG PO BID, #60 TAB 1 Refill Prov: LANE PROCTOR DO 05/31/25 Education Educated: Patient Critical Care Note Total Time (mins): 30 Critical Care Note The very real possibility of a deterioration of this patient's condition required the highest level of my preparedness for sudden, emergent intervention. I provided critical care services, which included medication orders, frequent reevaluations of the patient's condition and response to treatment, ordering and reviewing test results, and discussing the case with various consultants. Excludes time spent performing separately billable procedures. The critical care time associated with the care of the patient was 30 minutes. Signature Scribe Signature: Scribed for Kwabena Carlton MD by Connor Rosario . 05/29/25 04:12 Attestation: The note accurately reflects work and decisions made by me.Kwabena Carlton MD 05/29/25 04:09 KWABENA CARLTON MD May 29, 2025 04:09 CONNOR GELLER May 29, 2025 04:12
[2025-05-29] MEDS: diatr meglu/diatrizoate 30ml oral sol.-(3 dose) bottle PO SCH (04:43)
[2025-05-29 04:56] LABS: MEAN PLATELET VOLUME 9.0 FL (7.4-10.4)
[2025-05-29 04:57] LABS: CREATININE 2.42 MG/DL (0.60-1.10); TOTAL CARBON DIOXIDE 38.1 MMOL/L (24-32); eCRCL 27 ML/MIN; eGFR 27 ML/MIN
[2025-05-29 04:58] LABS: INR 1.2 INR; LEUKOCYTE ESTERASE ,URINE NEGATIVE (Neg); NITRITES, URINE NEGATIVE (Neg); OCCULT BLOOD,URINE TRACE-INTACT (Neg); RED CELL DISTRIBUTION WIDTH 16.8 % (11.5-14.5)
[2025-05-29 04:59] LABS: UA COLLECTION TYPE FOLEY CATH
[2025-05-29 05:01] LABS: APTT 33 SECONDS (22-32)
[2025-05-29 05:10] LABS: SQUAMOUS EPITHELIAL CELL,UR FEW /LPF (FEW)
--- NOTE | 2025-05-29 05:17 | RADIOLOGY REPORT ---
Exam: DI ABDOMEN,SINGLE VIEW(KUB) Indication: pain Comparison: None Technique: Single radiographic views of the abdomen. Findings: The heart is enlarged. Chronic appearing bilateral interstitial pulmonary markings noted within the lung bases. Enteric catheter terminates within the left upper quadrant, presumably within the gastric lumen. Nonobstructive bowel gas pattern noted. There is no definite evidence for pneumoperitoneum. No abnormal calcifications noted. Impression: 1. Nonobstructive bowel gas pattern noted. 2. Enteric catheter. 3. Cardiomegaly. 4. Chronic appearing bibasilar interstitial pulmonary markings.
[2025-05-29] MEDS: pantoprazole 40MG/NS 100ML BAG 100 ML IV ONE ×2 (05:35)
--- NOTE | 2025-05-29 05:48 | HISTORY AND PHYSICAL ---
History of Present Illness End CC ~ History of Present Illness 64 year old male who is a former [employer] who worked with Alok Thomas presents as a transfer from [facility] due to a small bowel obstruction. HPI from [facility]: In short patient presented to the ED by EMS for chest pain, abdominal pain, nausea vomiting x3 days. Reported history of CHF, CKD, HTN. Stated he is not taking any medications. Denies blood pressure medication. Supposed to be on diuretics. Not taking. Patient states that he gave up on the medical system and has been lost to follow up. Feeling like the system was not helping him. Potassium replaced at referring facility, but level 3.3 here at [place] am labs, Mag 1.9. Platelet elevated >1000K along with WBC 15K Patient has history of colostomy from 2022, He is not able to provide history on the circumstances of this. CT c/a/p: Impression: Dependent ground glass pulmonary opacities most prominent within the left lung which may be hypoventilatory owever atypical pneumonitis or developing asymmetric edema should be clinically excluded. XR CHEST AP PORTABLE: Impressions: Cardiomegaly and findings suggestive of pulmonary edema. Allergies: Coded Allergies: No Known Allergies (Unverified , 09/16/23) Home Medications Home Medications Active Reported Aspirin EC (Aspirin) 325 Mg Tablet.dr 1 Tab PO DAILY 30 Days Enemeez (Docusate Sodium) 283 Mg/5 Ml Enema 5 Ml RC DAILY PRN 30 Days Hydromorphone 1 Mg/Ml Syringe (Hydromorphone Hcl/Pf) 1 Mg/Ml Disp.syrin 0.5 Mg IVP Q4H PRN Dakin's (Sodium Hypochlorite) 0.125 % Solution 473 Ml MC BID Mag64 (Magnesium Chloride) 64 Mg Tablet.er 1 Tab PO DAILY 30 Days Ondansetron HCl 4 mg/2 ml Syr (Ondansetron HCl/Pf) 4 Mg/2 Ml Syringe 4 Mg IVP Q4H PRN ZyprexaIm Only (Olanzapine) 10 Mg Vial 5 Mg IM Q4H PRN Hydromorphone HCl 0.5 Mg/0.5 Ml Disp.syrin 0.5 Mg IM BID PRN Lidocaine-Menthol 4%-4% Patch (Lidocaine/Menthol) 4 %-4 % Adh..patch 1 Patch TP BID PRN Quetiapine Fumarate 25 Mg Tablet 1 Tab PO BID PRN 30 Days Maalox Advanced Suspension* (Al Hydroxide/Mg Hydroxide) 200 Mg-200 Mg-20 Mg/5 Ml Oral.susp 30 Ml PO PRN PRN Ativan (Lorazepam) 1 Mg Tablet 0.5 Tab PO Q4H PRN 30 Days Hydrocodone-Apap 10-325 Tablet (Acetaminophen/Hydrocodone Bitart) 10mg/325mg Tablet 2 Tablet PO Q4H PRN Aspercreme 10% Cream (Trolamine Salicylate) 10 % Cream.gm. 1 Applic TOP Q12H 14 Days Vitamin B-1 (Thiamine HCl) 50 Mg Tablet 2 Tab PO DAILY 30 Days Flomax* (Tamsulosin HCl) 0.4 Mg Cap.sr.24h 1 Cap PO DAILY 30 Days Spironolactone 25 Mg Tablet 1 Tab PO DAILY 30 Days Aquastat (Sodium Chloride 0.9 % (Flush)) 0.9 % Syringe 10 Ml IVF BID Entresto 24 mg-26 mg Tablet (Sacubitril/Valsartan) 24 Mg-26 Mg Tablet 1 Tab PO BID Polyethylene Glycol 3350 17 Gram Powd.pack 1 Pkt PO DAILY PRN 10 Days Pentoxifylline 400 Mg Tablet.sa 1 Tab PO BID 30 Days Omeprazole 20 Mg Capsule.dr 1 Cap PO BID 30 Days Movantik (Naloxegol Oxalate) 12.5 Mg Tablet 2 Tab PO DAILY PRN Multivitamins with Iron (Multivitamin W/Iron, Minerals) 1 Each Tab.chew 1 Tab PO DAILY 30 Days Muscle Rub Ultra Str Cream (Methyl Salicylate/Menth/Camph) 30 %-10 %-4 % Cream..g. 1 Dospak TOP DAILY Hydrocodone-Apap 10-325 Tablet (Acetaminophen/Hydrocodone Bitart) 10mg/325mg Tablet 1 Tablet PO HS Folic Acid* (Folic Acid) Y Tab 1 Tab PO DAILY 30 Days Lovenox (Enoxaparin Sodium) 40 Mg/0.4 Ml Disp.syrin 0.4 Ml SUBCUT DAILY Jardiance (Empagliflozin) 10 Mg Tablet 1 Tab PO DAILY 30 Days Docusate Sodium 100 Mg Caps 1 Cap PO BID Carvedilol 6.25 Mg Tablet 2 Tablet PO BID Atorvastatin Calcium 20 Mg Tablet 1 Tab PO DAILY 30 Days Past Medical History Medical History Comment as above: CHF EF unkown, Hx of Colostomy since 2022 Not much medical follow up Past Surgical History Other Past Surgical History: colostomy 2022 Past Social History Social History Comment No tobacco use Advance Care Planning Advanced Care planning: N/A Review of Systems All Other Systems at this time: Reviewed and Negative Physical Exam Last Vital Signs recorded: Temperature: 98.1, Source: Oral, Heart Rate: 75, Respiratory Rate: 18, BP: 164/83, Pulse Oximetry: 97, Weight: 61.500 Results Diagram Lab Result Diagram: 05/29/2542405/29/25424 Assessment/Plan Problems/Diagnosis: (1) Small bowel obstruction (2) Acute on chronic heart failure Additional Plan Assessment Small Bowel Obstruction with hx of colostomy from 2022 Acute on Chronic Systolic HFeEF NSTEMI Acute Hypoxemic Respiratory Failure SUZANNE on CKD vs CKD Leukocytosis Thrombocytosis->1000K, reactive? Hypokalemia/Hypomagnesium Recommendation -Lasix 40 mg IV x 1 now for resp failure and CHF -Oxygen to keep sats > 90% -follow up BMP for potassium, if still low, replace, replaced initially by ED -Mag sulfate 2 gram IV x 1 now -Blood cultures x 2, check Lactic acid -ASA 81 mg daily, trend troponin, echocardiogram -Zosyn IV antibiotic emperic with leukocytosis and SBO -CT abdomen and pelvis with oral contrast ordered -Protonix GI prophylaxis -SCD for DVT prophylaxis, consider chemical prophylaxis if no surgery is planned Seen via HIPAA compliant audio visual platform, spent 35 minute in care DEBBIE FOY MD May 29, 2025 05:48
[2025-05-29] MEDS: furosemide 10 MG/1 ML 10ml inj IV ONE (06:17)
[2025-05-29] MEDS: magnesium sulf-water 2g/50mL 50 ML IV ONE (06:21)
[2025-05-29 07:51] LABS: CREATININE 2.46 MG/DL (0.60-1.10); TOTAL CARBON DIOXIDE 36.3 MMOL/L (24-32); eCRCL 26 ML/MIN; eGFR 27 ML/MIN
[2025-05-29] MEDS: piperacillin/tazo 3.375gm/50ml 50 ML IV SCH (08:24)
[2025-05-29] MEDS ORDERED: potassium Cl 20 mEq SR tablet PO PRN (08:50)
[2025-05-29] MEDS ORDERED: magnesium sulf-water 2g/50mL 50 ML IV PRN (08:50)
[2025-05-29] MEDS ORDERED: magnesium sulf-water 4G/100mL 100 ML IV PRN (08:50)
[2025-05-29] MEDS: normal saline 1000ml 1,000 ML IV SCH (08:50)
[2025-05-29] MEDS ORDERED: magnesium Cl slow-release 64mg tablet PO PRN (08:50)
[2025-05-29] MEDS ORDERED: bisacodyl 10mg suppository rectal RC PRN (08:50)
[2025-05-29] MEDS ORDERED: potassium Cl 40MEQ/1/2NS 520ml 520 ML IV PRN (08:50)
[2025-05-29] MEDS ORDERED: iohexol 300mg/ml 100ml inj. ONE (09:20)
[2025-05-29 10:25] VITALS: BP 161/67; PULSE 79; RESP 16; TEMP 97.9; O2SAT 96
[2025-05-29] MEDS: potassium Cl 20 mEq SR tablet PO PRN (11:32)
--- NOTE | 2025-05-29 12:19 | RADIOLOGY REPORT ---
Exam: CT CT ABDOMEN PELVIS W/ ORAL CONTRAST History: ABD PAIN Comparison Study: CT CT ABDOMEN PELVIS on DOS: 08/27/23 Technique: Multidetector spiral CT of the abdomen was performed from lung bases to pubic symphysis. Imaging was performed without IV contrast. Axial, coronal and sagittal multiplanar reformats were ob tained from the axial data set by the technologist. Radiation Dose : 1. Abdomen/Pelvis: CTDIvol 8 mGy, DLP 372 mGy*cm. Findings: Evaluation of solid organs is limited due to lack of intravenous contrast use. Lung Bases: Persistent moderate cardiomegaly. Diminished pleural effusions when compared to the prior CT from 2022. Chronic interstitial infiltrates at both lung bases. Liver: The liver is normal in size. No focal lesions. Gallbladder and Biliary Tree: Unremarkable Spleen: Unremarkable Pancreas: The pancreas is grossly normal in appearance. Adrenal Glands: Unremarkable Kidneys: Kidneys are grossly normal without calculi or hydronephrosis. Bladder: Armstrong catheter in the bladder. Bowel: Enteric tube again seen terminating in the left upper quadrant. There is no leak. Contrast can be seen to the level of the colon. Appendix not identified. Colostomy seen to the left of midline, s agittal image 79, series 602. No bowel obstruction. Ascites: Absent Lymphadenopathy: No mesenteric, retroperitoneal or periportal lymphadenopathy. Abdominal Wall and Mesentery: Unremarkable. 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 Persistent advanced arteriosclerotic changes id entified. Pelvic Organs: No free fluid in the pelvis. Musculoskeletal: No aggressive focal bony lesions, acute fractures or dislocation. IMPRESSION: 1. Enteric tube ending in the left upper quadrant. There is no leak of contrast or obstruction. Armstrong catheter in the bladder. No free air. No pancreatitis. No obstructing uropathy. 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
[2025-05-29 12:30] VITALS: RESP 18; O2SAT 93
[2025-05-29 13:16] LABS: PRO BRAIN NATRIURETIC PEPTIDE > 30000 PG/ML (0-125)
[2025-05-29 13:34] LABS: MEAN PLATELET VOLUME 9.0 FL (7.4-10.4)
[2025-05-29 13:36] LABS: RED CELL DISTRIBUTION WIDTH 16.9 % (11.5-14.5)
[2025-05-29] MEDS: mag hydrox/Alum hydrox/simeth 30ml oral suspension PO PRN (14:22)
[2025-05-29 18:00] VITALS: BP 159/77; PULSE 68; RESP 17; TEMP 98.3; O2SAT 98
--- NOTE | 2025-05-29 19:14 | PROGRESS NOTE ---
Daily Progress Note Providers to CC ~ Antibiotic Timeout Antibiotic Ordered?: Yes Subjective Patient was seen in ER in all old records reviewed and documentation mentioned below. Patient has NG tube in place when I saw the patient in ER. Bowel sounds present colostomy bag in place. Patient lives with two roommate and able to ambulate As per records past medical history significant for congestive heart failure, COPD, hypertension. Patient mentioned to me that his legs was very swollen in they took out lot of fluid from him. Past Surgical history status post carpal tunnel release, status post colectomy, laparotomy, wrist surgery for compound fracture with ORIF. As per patient he does not take any medication he does not recall that he has any cardiac history and does not have any primary care physician or product distribution specialist in outpatient setting. Does not take anything else except for aspirin or Tylenol. Smokes 2-3 cigarettes per day denied any nausea vomiting or fever. Patient does use alcohol denied using any recreational drugs. CTA chest with contrast done on May 28, 2025 which they compared with patient's CT chest with contrast done on July 24, 2023 showed dependent ground-glass pulmonary opacities most prominent within the left lung which may be hypoventilatory however atypical pneumonitis or developing asymmetric edema should be clinically excluded. CT abdomen and pelvis with IV contrast was also done on same day May 28, 2025 impression marked fluid and gas distension of proximal small bowel compatible with high-grade mechanical small-bowel obstruction. Patient got Dilaudid pain medication , received multiple doses of furosemide 40 mg in [facility] ER. Lab testing showed UA negative for any UTI WBC 19.06 on May 28 at 6:50 p.m. BNP 74498, troponin 8380-130, total bilirubin 1.2 signs of chronic kidney disease stage 3 creatinine 2.01 GFR 36 Patient was transferred to higher level of care from [facility] ER and Dr. Carlton accepted the patient for transfer for possible small- bowel obstruction and acute on chronic congestive heart failure exacerbation. Code status discussed with the patient patient wishes to stay DNR DNI. Objective Vital Signs Date Time Temp Pulse Resp B/P (MAP) Pulse Ox O2 Delivery O2 Flow Rate FiO2 05/29/25 12:32 16 05/29/25 11:57 81 05/29/25 10:25 97.9 161/67 (98) 96 Room Air 05/29/25 07:[address] ABDOMEN PELVIS W/ ORAL CONTRAST-IMPRESSION: 1. Enteric tube ending in the left upper quadrant. There is no leak of contrast or obstruction. Armstrong catheter in the bladder. No free air. No pancreatitis. No obstructing uropathy. 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 No lymphadenopathy bilaterally. NG tube in place Eyes-no icterus or pallor seen in eyes Chest-clear to auscultation bilaterally, breathing nonlabored no tachypnea, no wheezing, no crepitation, no crackles. Heart-S1-S2 normal, regular heart rate no murmur Abdomen bowel sounds positive on auscultation, soft nondistended nontender no guarding, no rigidity, colostomy bag present over left side of the abdomen . Skin no active skin rash, chronic hyperpigmentation present over lower extremity Neurology-grossly intact, nonfocal alert awake oriented Extremity- no pedal edema able to move all 4 extremities, shrunken and dry legs Psychiatry - patient is not confused or agitated cooperated during physical examination Coagulation Studies Laboratory Tests Test 05/29/25 04:25 Prothrombin Time 12.3 SECONDS (9.0-12.0) H INR International Normalized Ratio 1.2 INR Activated Partial Thromboplast Time 33 SECONDS (22-32) H Coagulation Comments Problem\Assessment\Plan Patient is 64-year-old male Severe peripheral arterial disease-SBP external iliac artery stenting, balloon angioplasty of the left BATTERY CONTAINER INSPECTOR and angioplasty of the left SFA.chronic HFpEF, s/p drainage of intra-abdominal abscess , SBP colostomy, BPH.The patient has a history of heart failure with preserved ejection fraction with his EF ranging from 55 to 60% based off his last echo on 09/17/2023 and proBNP elevated at 3806 on September 24, 2023. Discharge medications: Sep 23, 2023 Lasix 20mg, aspirin 81mg, plavix 75mg, simethicone 81mg, enoxaparin SQ, atorva 20mg, docusate 100mg, Jardiance 10mg, folic acid, thiamine, Narco 10 and 5 PRN, lorazepam 1mg PRN, MAG64, Movantik, Zyprexa, multivitamin, Protonix, Ondansetron, Polyethylene glycol, Quetiapine, Enteresto, Aldactone, Flomax, Dakins. Patient is currently taking aspirin and Tylenol only Patient was seen in ER in all old records reviewed and documentation mentioned below. Patient has NG tube in place when I saw the patient in ER. Bowel sounds present colostomy bag in place. Patient lives with two roommate and able to ambulate As per records past medical history significant for congestive heart failure, COPD, hypertension. Patient mentioned to me that his legs was very swollen in they took out lot of fluid from him. Past Surgical history status post carpal tunnel release, status post colectomy, laparotomy, wrist surgery for compound fracture with ORIF. As per patient he does not take any medication he does not recall that he has any cardiac history and does not have any primary care physician or product distribution specialist in outpatient setting. Does not take anything else except for aspirin or Tylenol. Smokes 2-3 cigarettes per day denied any nausea vomiting or fever. Patient does use alcohol denied using any recreational drugs. CTA chest with contrast done on May 28, 2025 which they compared with patient's CT chest with contrast done on July 24, 2023 showed dependent ground-glass pulmonary opacities most prominent within the left lung which may be hypoventilatory however atypical pneumonitis or developing asymmetric edema should be clinically excluded. CT abdomen and pelvis with IV contrast was also done on same day May 28, 2025 impression marked fluid and gas distension of proximal small bowel compatible with high-grade mechanical small-bowel obstruction. Patient got Dilaudid pain medication , received multiple doses of furosemide 40 mg in [facility] ER. Lab testing showed UA negative for any UTI WBC 19.06 on May 28 at 6:50 p.m. BNP 75836, troponin 8380-130, total bilirubin 1.2 signs of chronic kidney disease stage 3 creatinine 2.01 GFR 36 Patient was transferred to higher level of care from [facility] ER and Dr. Carlton accepted the patient for transfer for possible small- bowel obstruction and acute on chronic congestive heart failure exacerbation. Echocardiogram done today showed overall estimated left ventricular ejection fraction 25-30%. Septal and anterior segment appeared akinetic mild concentric hypertrophy. There is severe left ventricular systolic dysfunction severe biatrial enlargement. Right ventricle is severely dilated with reduced function. Estimated PA systolic pressure is 37 mm of mercury. No pericardial effusion normal pericardium. Code status discussed with the patient patient wishes to stay DNR DNI. Patient is high-risk patient with multiple comorbidities we will continue to follow patient in a.m.. Further management depending on response to treatment. We will do the home medication reconciliation once updated by nursing staff or pharmacist PROPERLY PATIENT MENTIONED TO ME THAT HE IS ONLY TAKING TYLENOL AND ASPIRIN CURRENTLY. I SPOKE TO PHARMACIST Mei RAYO AT 7:30 P.M. TO DO THE MEDICATION RECONCILIATION AGAIN. Date of Service: May 29, 2025 Billing Provider: NIYAH LEBRON MD Common Visit Codes: [id number] INP/OBS CARE(HIGH) NIYAH LEBRON MD May 29, 2025 19:14
--- NOTE | 2025-05-29 19:25 | CARDIOLOGY REPORT ---
APPROVED REPORT EXAM: Comprehensive 2D, Doppler, and color-flow Echocardiogram. Patient Location: [address] Blood Pressure: 161/67 mmHg Heart Rate: 79 bpm Rhythm: Sinus Rhythm Indications Congestive Heart Failure Acute HF/ NSTEMI Small Bowel Obstruction Hx of CKD Hypertension Hx of Colostomy (2022) Senior Quality Technician: None Previous echo: 09/17/2023 [facility] EF: 55-60% mild MR, mild TR, mod LA 2D Dimensions LA Diam5.7 cm IVSd 1.3 (0.7-1.1cm) LVDd 5.5 cm PWd 1.3 (0.7-1.1cm) IVSs 1.4 (0.8-1.2cm) RA Minor5.1 cm LVDs 4.6 (2.5-4.0cm) PWs 1.2 (0.8-1.2cm) LVOT Diameter 2.20 (1.8-2.4cm) FS (%) 16.7 % SV 51.3 ml CO 4.1 L/min M-Mode Dimensions RVDd 4.08 (2.1-3.2cm) IVSd 1.28 (0.7-1.1cm) LVDd 6.26 (4.0-5.6cm) Aortic Root 3.13 (2.2-3.7cm) PWd 1.36 (0.7-1.1cm) Aortic Cusp Exc 2.18 (1.5-2.0cm) IVSs 1.36 cm MV EPSS 1.3 (<0.5cm) LVDs 5.44 (2.0-3.8cm) FS (%) 13 % PWs 1.48 cm ESV(Teich) 143.6 ml LVEF(%) 28 (>50%) Biplane 2D LA Volumes LA ESV A4C 125.37 mL/m2 Aortic Valve AoV Peak Juanjose. 176.9 cm/s AoV VTI 27.5 cm AO Peak GR. 12.5 mmHg AO Mean GR. 5 mmHg LVOT VTI 18.56 cm LVOT Peak Juanjose. 104.0 cm/s LUZMARIA(VTI)/BSA 2.57 cm2/m2 LUZMARIA (VTI) 2.57 cm2 Mitral Valve MV E Velocity 62.9 cm/s MV Peak Gr. 3 mmHg MV DECEL TIME 176 ms MV A Velocity 57.0 cm/s MV Mean Gr. 1 mmHg MV PHT 56 ms E/A Ratio 1.1 MVA (PHT) 3.93 cm2 MV VMax79.3 cm/sMV VMean48.3 cm/s MVA VTI4.06 cm2MV VTI17.4 cm TDI Lateral E' P. V10.18 cm/s E/Lateral E' 6.2 Tricuspid Valve TR P. Velocity 258 cm/s RAP ESTIMATE 10 mmHg TR Peak Gr. 27 mmHg RVSP 37 mmHg Pulmonary Vein S1 Velocity 43.6 cm/s D2 Velocity 36.8 cm/s PVa Gkwwkwlc83.8 cm/s PVa [id number] msec LEFT VENTRICLE Normal LV size with severely reduced function. Septal and anterior segments appear akinetic. Mild co ncentric hypertrophy. There is severe LV systolic dysfunction present. Overall estimated Overall LVE F is 25-30%. RIGHT VENTRICLE Right ventricle is severely dilated with reduced function. Estimated PA systolic pressure is 37 mmHg. ATRIA Severe biatrial enlargement. AORTIC VALVE Trileaflet AV appears sclerotic without stenosis or insufficiency. MITRAL VALVE Mild MV annular calcification and thickening. No stenosis with mild regurgitation. TRICUSPID VALVE TV appears structurally normal with mild regurgitation. PULMONIC VALVE Normal PV without stenosis, physiologic insufficiency. GREAT VESSELS The aortic root is normal in size. IVC is normal in size and collapses greater than 50% with inspirat ion. PERICARDIUM Normal pericardium. No pericardial effusion seen. Other Information Study Quality: Adequate Conclusion There is severe LV systolic dysfunction present. Overall estimated Overall LVEF is 25-30%. Normal LV size with severely reduced function. Septal and anterior segments appear akinetic. Mild c oncentric hypertrophy. Right ventricle is severely dilated with reduced function. Estimated PA systolic pressure is 37 mmHg. Trileaflet AV appears sclerotic without stenosis or insufficiency. Mild MV annular calcification and thickening. No stenosis with mild regurgitation. TV appears structurally normal with mild regurgitation. Normal PV without stenosis, physiologic insufficiency. Normal pericardium. No pericardial effusion seen.
[2025-05-29] MEDS ORDERED: NO HOME MEDS (20:10)
[2025-05-29] MEDS: heparin, porcine 5000 units/ml vial SQ SCH (20:23)
[2025-05-29 22:00] VITALS: BP 132/67; PULSE 70; RESP 16; TEMP 98.4; O2SAT 94
[2025-05-30] VITALS (7 sets, daily range): BP systolic 119–161; BP diastolic 65–85; PULSE 58–73; RESP 15–20; TEMP 98.3–98.7; O2SAT 89–96
[2025-05-30 06:11] LABS: MEAN PLATELET VOLUME 8.6 FL (7.4-10.4); RED CELL DISTRIBUTION WIDTH 16.5 % (11.5-14.5)
[2025-05-30 06:33] LABS: CREATININE 2.10 MG/DL (0.60-1.10); TOTAL CARBON DIOXIDE 35.7 MMOL/L (24-32); eCRCL 31 ML/MIN; eGFR 32 ML/MIN
[2025-05-30 07:01] LABS: LARGE PLATELETS FEW; PLATELET ESTIMATE INCREASED
[2025-05-30] MEDS: HYDROcodone/acetaminophen 10/325mg tab PO PRN (10:41)
--- NOTE | 2025-05-30 19:59 | PROGRESS NOTE ---
Daily Progress Note Providers to CC ~ Antibiotic Timeout Antibiotic Ordered?: Yes Subjective The patient is not on oxygen at home and was taken off oxygen this afternoon in his oxygen saturations in the mid 90s, the patient is hungry and is requesting advancement in his diet, the patient complains of significant pain in his left lower extremity for two months which has been progressively worsening the patient has a arterial occlusion and a stent placed in 2022 with IR Objective Vital Signs Date Time Temp Pulse Resp B/P (MAP) Pulse Ox O2 Delivery O2 Flow Rate FiO2 05/30/25 19:13 12 05/30/25 18:30 62 05/30/25 18:00 98.3 153/85 (107) 96 Room Air 05/30/25 10:00 1.0 Result Diagram: 05/30/25 0541 05/30/25 0541 Gen. No acute distress alert and oriented 4 Lungs clear to ascultation bilaterally, no wheezes rales or rhonchi appreciated Heart normal sinus rhythm no murmurs rubs or clicks noted Abdomen soft nontender bowel sounds are normoactive Lower extremities no clubbing cyanosis, nor edema appreciated bilaterally, mild erythema to the left lower extremity was significant tenderness to palpation Coagulation Studies Laboratory Tests Test 05/29/25 04:25 Prothrombin Time 12.3 SECONDS (9.0-12.0) H INR International Normalized Ratio 1.2 INR Activated Partial Thromboplast Time 33 SECONDS (22-32) H Coagulation Comments Problem\Assessment\Plan Patient is 64-year-old male Severe peripheral arterial disease-SBP external iliac artery stenting, 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 # bowel obstruction- Resolved on CT scan Advanced diet # peripheral vascular disease of the left lower extremity Significant tenderness to palpation with progressive increase in discomfort and pain as well as rubor I have ordered a arterial ultrasound evaluate for arterial stenosis # HFrEF chronic not in acute exacerbation Not on any heart failure medications- which we will need to be restarted LVEF is 25-30% Restart Jardiance Entresto Carvedilol # thrombocytosis Improving monitor daily CBC Date of Service: May 30, 2025 Billing Provider: LANE PROCTOR DO Common Visit Codes: [id number] INP/OBS CARE(HIGH) LANE PROCTOR DO May 30, 2025 19:59
[2025-05-30] MEDS: sacubitril/valsartan 24mg-26mg tablet PO SCH (20:57)
[2025-05-31 02:00] VITALS: BP 136/72; PULSE 58; RESP 13; TEMP 98.3; O2SAT 92
[2025-05-31 05:38] LABS: MEAN PLATELET VOLUME 8.7 FL (7.4-10.4); RED CELL DISTRIBUTION WIDTH 16.6 % (11.5-14.5)
[2025-05-31 06:00] VITALS: BP 143/92; PULSE 60; RESP 18; TEMP 97.6; O2SAT 94
[2025-05-31 08:15] VITALS: RESP 18
[2025-05-31] MEDS: EMPAGLIFLOZIN 10 MG TABLET PO SCH (08:15)
[2025-05-31 09:22] LABS: GIANT PLATELET FEW; LARGE PLATELETS FEW; PLATELET ESTIMATE INCREASED
[2025-05-31 10:00] VITALS: BP 122/68; PULSE 61; RESP 18; TEMP 98.2; O2SAT 90
--- NOTE | 2025-05-31 12:37 | VASCULAR REPORT ---
Left Lower Extremity Arterial Duplex Clinical History: Lower extremity pain Comparison: VASC VL ARTERIAL on DOS: 09/04/23 Technique: Duplex Doppler evaluation including color Doppler and spectral/pulsed waveform analysis of the lower extremity arteries was performed. Findings: LEFT: Peak systolic velocities are as follows: NUT TAPPER 17 cm/s Deep femoral 70 cm/s SFA proximal 0 cm/s SFA mid-portion 0 cm/s SFA distal 0 cm/s Popliteal 0 cm/s Posterior tibial 43 cm/s Anterior tibial 0 cm/s Peroneal 17 cm/s Dorsalis pedis 0 cm/s Left bypass graft is present and patent with monophasic arterial waveform. Proximal velocity is 71 cm/sec. Distal anastomosis velocity 168 cm/sec The waveforms are monophasic. IMPRESSION: Severe calcified plaque seen throughout the left lower extremity. Minimal multiphasic flow in the le ft common femoral artery, left deep femoral artery displaced multiphasic flow. The sioux superficia l femoral artery, popliteal artery and anterior tibial artery are occluded. The left femoral tibial bypass graft displaced Monophasic waveforms. Possible stenosis of the distal anastomosis. Monophasic flow in the left distal posterior tibial artery and peroneal artery. REFERENCE VALUES, [facility]) vascular Imaging Lab Criteria: Peak systolic velocity rang es (in cm/sec) are as follows: <150 cm/s - <20 % stenosis 150-200 cm/s - 20-49% stenosis 200-300 cm/s - 50-75% stenosis >300 cm/s -> 75% stenosis
[2025-05-31] MEDS ORDERED: CARV-164 PO (14:27)
[2025-05-31] MEDS ORDERED: SACU1TAB PO (14:27)
[2025-05-31] MEDS ORDERED: EMPA10TA PO (14:27)
[2025-05-31] MEDS ORDERED: POTA-207 PO (14:27)
[2025-05-31 18:00] VITALS: BP 102/72; PULSE 59; RESP 19; TEMP 96.9; O2SAT 92
--- NOTE | 2025-05-31 20:42 | PROGRESS NOTE ---
Daily Progress Note Providers to CC ~ Antibiotic Timeout Antibiotic Ordered?: No Subjective The patient is requested ostomy supplies I did call his dural pull medical [employer] company [employer] for which they are changing to a different company tomorrow and will no longer cover ostomy supplies and the patient will have to order his ostomy supplies through [employer]. Objective Vital Signs Date Time Temp Pulse Resp B/P (MAP) Pulse Ox O2 Delivery O2 Flow Rate FiO2 05/31/25 19:39 16 05/31/25 10:00 98.2 61 122/68 (86) 90 Room Air 05/30/25 10:00 1.0 Result Diagram: 05/31/25 0459 05/30/25 0541 Gen. No acute distress alert and oriented 4 Lungs clear to ascultation bilaterally, no wheezes rales or rhonchi appreciated Heart normal sinus rhythm no murmurs rubs or clicks noted Abdomen soft nontender bowel sounds are normoactive Lower extremities no clubbing cyanosis, nor edema appreciated bilaterally, mild erythema to the left lower extremity was significant tenderness to palpation Coagulation Studies Laboratory Tests Test 05/29/25 04:25 Prothrombin Time 12.3 SECONDS (9.0-12.0) H INR International Normalized Ratio 1.2 INR Activated Partial Thromboplast Time 33 SECONDS (22-32) H Coagulation Comments Problem\Assessment\Plan Patient is 64-year-old male Severe peripheral arterial disease-SBP external iliac artery stenting, balloon angioplasty of the left CLIENT SUPPORT ADMINISTRATOR and angioplasty of the left SFA.chronic HFpEF, s/p drainage of intra-abdominal abscess , SBP colostomy, BPH.The patient has a history of heart failure with preserved ejection fraction with his EF ranging from 55 to 60% based off his last echo on 09/17/2023 and proBNP elevated at 3806 on September 24, 2023. # bowel obstruction- Resolved on CT scan Advanced diet # peripheral vascular disease of the left lower extremity Significant tenderness to palpation with progressive increase in discomfort and pain as well as rubor I have ordered a arterial ultrasound evaluate for arterial stenosis- which demonstrates a patent fem-pop graft # HFrEF chronic not in acute exacerbation Not on any heart failure medications- which we will need to be restarted LVEF is 25-30% Restart Jardiance Entresto Carvedilol # thrombocytosis Improving monitor daily CBC # ostomy The patient uses a [employer] one piece cut to fit ostomy- his [employer] is being sold tomorrow and will no longer carry ostomy supplies the patient will have to go online and obtain the ostomy supplies through [employer]. Disposition: Anticipate discharge in the a.m. Date of Service: May 31, 2025 Billing Provider: LANE PROCTOR DO Common Visit Codes: [id number] INP/OBS CARE(HIGH) LANE PROCTOR DO May 31, 2025 20:42
[2025-05-31 22:00] VITALS: BP 112/76; PULSE 67; RESP 16; TEMP 97.2; O2SAT 96
[2025-06-01 04:57] LABS: MEAN PLATELET VOLUME 8.4 FL (7.4-10.4)
[2025-06-01 04:59] LABS: RED CELL DISTRIBUTION WIDTH 16.4 % (11.5-14.5)
[2025-06-01 06:00] VITALS: BP 96/73; PULSE 65; RESP 18; TEMP 97.8; O2SAT 98
[2025-06-01 07:12] VITALS: BP 112/83; PULSE 59
[2025-06-01 08:03] LABS: LARGE PLATELETS FEW; PLATELET ESTIMATE INCREASED
[2025-06-01 10:00] VITALS: BP 122/72; PULSE 65; RESP 19; TEMP 97.4; O2SAT 93
[2025-06-01 10:33] LABS: CREATININE 1.90 MG/DL (0.60-1.10); TOTAL CARBON DIOXIDE 29.6 MMOL/L (24-32); eCRCL 34 ML/MIN; eGFR 36 ML/MIN
[2025-06-01 11:53] LABS: MEAN PLATELET VOLUME 8.8 FL (7.4-10.4)
[2025-06-01 12:03] LABS: RED CELL DISTRIBUTION WIDTH 16.4 % (11.5-14.5)
[2025-06-01] MEDS ORDERED: aminophylline 250mg/10ml inj. IV PRN (12:20)
[2025-06-01] MEDS ORDERED: metoprolol tartrate 1mg/ml inj IV PRN (12:20)
--- NOTE | 2025-06-01 12:51 | ELECTROCARDIOGRAPH REPORT ---
[facility] Test Date: 2025-06-01 Test Time: 10:17:40 Pat Name: JADYN THOMAS Department: ORTHO/NEURO Room: ORTHO [facility]4 B Gender: M Purchasing Specialist: : [id number] Requested By: LANE PROCTOR Order Number: [id number] Reading MD: Dr. RIC Powell Measurements Intervals [place] Rate: 64 P: 78 SC: 135 QRS: 115 QRSD: 113 T: -83 QT: 469 QTc: 484 Interpretive Statements Sinus rhythm Biatrial enlargement Repol abnrm, global ischemia, diffuse leads ST elevation, consider anterior injury Electronically Signed On 06-02-2025 16:35:[address] RIC Powell Please click the below link to view image of tracing.
[2025-06-01 19:41] VITALS: BP 132/95; PULSE 62; RESP 18; TEMP 97.1; O2SAT 96
[2025-06-01] MEDS: ENTRESTO PO SCH (20:00)
[2025-06-01] MEDS: sacubitril/valsartan 24mg-26mg tablet PO ONE (20:10)
[2025-06-01 20:43] VITALS: RESP 16; O2SAT 96
--- NOTE | 2025-06-01 22:07 | PROGRESS NOTE ---
Daily Progress Note Providers to CC ~ Antibiotic Timeout Antibiotic Ordered?: Yes Subjective The patient was about to be picked up and transferred to [place] today when than 30 minutes prior he developed chest pain and an EKG was obtained that showed rather diffuse ST segment depression a so far the troponins are negative and the patient now is chest pain-free a Lexiscan stress test as ordered for the morning Objective Vital Signs Date Time Temp Pulse Resp B/P (MAP) Pulse Ox O2 Delivery O2 Flow Rate FiO2 06/01/25 20:43 16 96 Room Air 06/01/25 19:41 97.1 62 132/95 (107) 06/01/25 08:00 1.0 Result Diagram: 06/01/25 1109 06/01/25 0901 Gen. No acute distress alert and oriented 4 Lungs clear to ascultation bilaterally, no wheezes rales or rhonchi appreciated Heart normal sinus rhythm no murmurs rubs or clicks noted Abdomen soft nontender bowel sounds are normoactive Lower extremities no clubbing cyanosis, nor edema appreciated bilaterally, mild erythema to the left lower extremity was significant tenderness to palpation Coagulation Studies Laboratory Tests Test 05/29/25 04:25 Prothrombin Time 12.3 SECONDS (9.0-12.0) H INR International Normalized Ratio 1.2 INR Activated Partial Thromboplast Time 33 SECONDS (22-32) H Coagulation Comments Problem\Assessment\Plan Patient is 64-year-old male Severe peripheral arterial disease-SBP external iliac artery stenting, 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 #Chest pain with diffuse ST segment depression on EKG Chest pain has resolved Troponins are negative Lexiscan stress test as ordered for the a.m. # thrombocytosis Possibly reactionary will need outpatient hematology follow up # bowel obstruction- Resolved on CT scan Advanced diet # peripheral vascular disease of the left lower extremity Significant tenderness to palpation with progressive increase in discomfort and pain as well as rubor I have ordered a arterial ultrasound evaluate for arterial stenosis- which demonstrates a patent fem-pop graft # HFrEF chronic not in acute exacerbation Not on any heart failure medications- which we will need to be restarted LVEF is 25-30% Restart Everardo Entrestkodak Carvedilol # ostomy The patient uses a [employer] one piece cut to fit ostomy- his [employer] is being sold tomorrow and will no longer carry ostomy supplies the patient will have to go online and obtain the ostomy supplies through [employer]. Disposition: Lexiscan stress test in the AM Date of Service: Jun 01, 2025 Billing Provider: LANE PROCTOR DO Common Visit Codes: [id number] INP/OBS CARE(HIGH) LANE PROCTOR DO Jun 01, 2025 22:07
[2025-06-01 22:17] VITALS: BP 129/87; PULSE 66; RESP 16; TEMP 97.8; O2SAT 93
[2025-06-02] VITALS (14 sets, daily range): BP systolic 108–161; BP diastolic 57–93; PULSE 58–103; RESP 14–17; TEMP 97.4–98.2; O2SAT 92–99
[2025-06-02 05:25] LABS: MEAN PLATELET VOLUME 8.7 FL (7.4-10.4); RED CELL DISTRIBUTION WIDTH 17.0 % (11.5-14.5)
[2025-06-02 05:49] LABS: CREATININE 1.87 MG/DL (0.60-1.10); TOTAL CARBON DIOXIDE 28.6 MMOL/L (24-32); eCRCL 35 ML/MIN; eGFR 37 ML/MIN
[2025-06-02] MEDS: sacubitril/valsartan 24mg-26mg tablet PO ONE (07:00)
[2025-06-02 07:53] LABS: LARGE PLATELETS MODERATE; PLATELET ESTIMATE INCREASED
[2025-06-02] MEDS: regadenoson 0.4mg/5ml syringe IV PRN (09:21)
--- NOTE | 2025-06-02 11:15 | RADIOLOGY REPORT ---
CLINICAL INFORMATION: Chest pain with diffuse ST segment depression. TECHNIQUE: 8.7 mCi of technetium 99m sestamibi was infused at rest. Rest SPECT imaging was obtained. Routine protocol for Lexiscan stress study was performed with 0.4 mg of Lexiscan. 35.9 mCi of techne tium 99m sestamibi was infused. Stress SPECT imaging was obtained. COMPARISON: None FINDINGS: Resting heart rate of 60 BPM increased to maximum rate of 75 BPM. Resting blood pressure of 150/84, also 150/84 with stress. There were no significant EKG changes. There was no chest pain. There are large areas of diminished perfusion in the inferior wall, apex, and lateral wall on both r est and stress images, possible chronic infarct and/or diaphragmatic attenuation. Questionable small area of reversibility in the apical lateral segment, although may be artifactual. TID ratio is 1.0. Wall motion is diffusely hypokinetic. Calculated left ventricular ejection fraction is 21%. IMPRESSION: 1. Large areas of diminished perfusion in the inferior wall, apex, and lateral wall on both rest and stress images, may be due to chronic infarct and/or diaphragmatic attenuation. 2. Questionable small area of reversibility in the apical lateral segment, although may be artifactua l. 3. Left ventricular ejection fraction is 21%.
[2025-06-02] MEDS: HYDROcodone/acetaminophen 5mg/325mg tablet PO PRN (20:20)
[2025-06-03] MEDS: ondansetron/PF 4mg/2ml inj IV PRN (03:24)
[2025-06-03 05:01] LABS: MEAN PLATELET VOLUME 8.5 FL (7.4-10.4); RED CELL DISTRIBUTION WIDTH 16.6 % (11.5-14.5)
[2025-06-03 06:00] VITALS: BP 113/80; PULSE 69; RESP 16; TEMP 97.6; O2SAT 94
[2025-06-03 07:29] LABS: LARGE PLATELETS FEW; PLATELET ESTIMATE INCREASED
[2025-06-03 07:54] VITALS: BP 149/98; PULSE 82
[2025-06-03 08:00] VITALS: RESP 16; O2SAT 94
[2025-06-03 10:00] VITALS: BP 92/62; PULSE 72; RESP 16; TEMP 98; O2SAT 92
[2025-06-03] MEDS ORDERED: SPIR25TA PO (13:51)
--- NOTE | 2025-06-03 17:30 | DISCHARGE SUMMARY ---
Discharge Summary Providers to No new complaint today, ready to be transferred to rehab facility ~ Discharge Summary Assessment Bilateral pneumonia, community-acquired mixed maggy Gram-positive Gram-negative Small-bowel obstruction history of colostomy CHF, reduced ejection Fraction in exacerbation Non-STEMI type 2 acute respiratory failure, secondary to hypoxia Thrombocytosis Hypokalemia Hypomagnesemia Admission Diagnosis: Acute onchronic CHF exacerbation, possible bowel obstruction, high troponin Admission Diagnosis Comment: Bilateral pneumonia, community-acquired mixed maggy Gram-positive Gram-negative Small-bowel obstruction history of colostomy CHF, reduced ejection Fraction in exacerbation Non-STEMI type 2 acute respiratory failure, secondary to hypoxia Thrombocytosis Hypokalemia Hypomagnesemia Hospital Course DATE OF ADMISSION: May 29, 2025 DATE OF DISCHARGE: June 03, 2025 Discharge Diagnosis\Comment: Bilateral pneumonia, community-acquired mixed maggy Gram-positive Gram-negative Small-bowel obstruction history of colostomy CHF, reduced ejection Fraction in exacerbation Non-STEMI type 2 acute respiratory failure, secondary to hypoxia Thrombocytosis Hypokalemia Hypomagnesemia Operations\Procedures: Non Consultants: Non Complications: None Condition on DC: Stable Discharge Summary: 64 year old male who is a former [employer] who worked with Alok Thomas presents as a transfer from [facility] due to a small bowel obstruction.HPI from [facility]:In short patient presented to the ED by EMS for chest pain, abdominal pain, nausea vomiting x3 days. Reported history of CHF, CKD, HTN. Stated he is not taking any medications. Denies blood pressure medication. Supposed to be on diuretics. Not taking. Patient states that he gave up on the medical system and has been lost to follow up. Feeling like the system was not helping him. Potassium replaced at referring facility, but level 3.3 here at [place] am labs, Mag 1.9. Platelet elevated >1000K along with WBC 15K, Patient has history of colostomy from 2022, He is not able to provide history on the circumstances of this. After admission patient was extensively evaluated and treated including IV antibiotics medication reconciled, he will be discharged in stable condition follow-up PCP Cardiology in the morning, today on physical exam Vital signs, stable ,afebrile. Pulse Oximetry reflects adequate oxygenation. General: well developed, well nourished. Awake , alert, and oriented x4, resting comfortably in the bed, in no acute distress . Skin: Warm, dry, no pallor, no rash or petechiae. HEENT: Atraumatic, normocephalic, EOMI, anicteric sclera B; pink conjunctiva; PERRLA, normal oropharynx, moist oral and nasal mucosa. Tympanic membrane , nose , throat clear. Neck: Trachea midline. Supple, full range of motion, no JVD, bruit , hepatojugular reflex , lymphadenopathy or masses, or other lesions Cardiac: Regular rhythm, regular rate no murmurs, rubs, or gallops. Normal S1 and S2, no S3 noticed. PMI is normal. Respiratory: Equal breath sounds bilaterally, no tachypnea; lungs clear to auscultation bilaterally, no wheezing ,rub or rales, or crackles. Chest wall is symmetric and without deformity. No signs of trauma. Chest wall is nontender. No signs of respiratory distress. Resonance is normal upon percussion bilaterally. Gastrointestinal: Abdomen symmetric, non-distended, soft, non-tender, normal bowel sounds x4 quadrant, normoactive, no hepatosplenomegaly , no masses , no bruit, no flank pain bilaterally. No voluntary guarding, rebound, or rigidity. No tenderness to percussion. No pulsatile masses. Equal femoral pulses. No Velasco's sign or McBurney point tenderness. Back; no CVA tenderness bilaterally, no deformities. Neck and back are without deformity as well. No tenderness noted on palpation of the spinous processes. Spinous processes are midline. Cervical, thoracic, and lumbar paraspinal muscles are not tender and are without spasm. : normal external genitalia, without lesions, swelling, masses or tenderness. Musculoskeletal: Extremities, normal range of motion, non-tender, muscle strength 5/5 x 4. Negative Homans signs bilaterally on lower extremity. Distal pulses full symmetrical, no clubbing, cyanosis , edema. Neurological: Speech is clear, alert, and oriented x 4. No motor or sensory deficit, deep tendon reflexes normal, cerebellar intact. Cranial nerves II-XII intact. Psych: Alert and or appropriate, normal affect. Vascular: Good distal pulses, which are equal x4; capillary refill less than 2 seconds. Lymphatic, no lymphadenopathy. *Problems/Diagnosis: (1) Small bowel obstruction Status: Acute (2) Acute on chronic heart failure Status: Acute Total Time Spent on D/C: > 30 Minutes Date of Service: Jun 03, 2025 Billing Provider: KRISTEN ÁLVAREZ MD Common Visit Codes: 75865-BCA/OBS DISCH DAY >30min Problem Qualifiers (1) Acute on chronic heart failure: Qualified Codes: I50.23 - Acute on chronic systolic (congestive) heart failure KRISTEN ÁLVAREZ MD Jun 03, 2025 17:30
== END 2025-06-03 14:13 | disposition home or self-care (01) | DRG 133 ==
LOC: ER 03:32 → ED HOLD 08:59 → ORTHO 4S 10:15
PROVIDERS: ADMIT Internal Medicine; ATTEND Internal Medicine
PROC: 0D9670Z Drainage of Stomach with Drainage Device, Via Natural or Artificial Opening (ICD-10-PCS; principal; 2025-05-29)
PROC: 4A02XM4 Measurement of Cardiac Total Activity, External Approach (ICD-10-PCS; 2025-06-02)
PROC: 3E033HZ Introduction of Radioactive Substance into Peripheral Vein, Percutaneous Approach (ICD-10-PCS; 2025-06-02)
DX: J96.01 Acute respiratory failure with hypoxia (principal); I50.23 Acute on chronic systolic (congestive) heart failure; K56.609 Unspecified intestinal obstruction, unspecified as to partial versus complete obstruction; I21.A1 Myocardial infarction type 2; I13.0 Hypertensive heart and chronic kidney disease with heart failure and stage 1 through stage 4 chronic kidney disease, or unspecified chronic kidney disease; J18.9 Pneumonia, unspecified organism; Z66 Do not resuscitate; I73.9 Peripheral vascular disease, unspecified; N18.9 Chronic kidney disease, unspecified; D75.839 Thrombocytosis, unspecified; E83.42 Hypomagnesemia; E87.6 Hypokalemia; J44.0 Chronic obstructive pulmonary disease with (acute) lower respiratory infection; Z79.899 Other long term (current) drug therapy; Z90.49 Acquired absence of other specified parts of digestive tract; Z93.3 Colostomy status; Z79.82 Long term (current) use of aspirin
CPT/HCPCS: 36415; 74018; 74176; 78452; 80048; 80053; 81001; 83605; 83690; 83735; 83880; 84484; 85008; 85025; 85610; 85730; 87040; 87081; 87811; 93005; 93017; 93306; 93926; 96365; 99291; A4421; A4615; A9500; G0378; J1644; J1938; J2270; J2405; J2470; J2543; J2785; J7030; Q9963; Q9967